=== PATIENT | male | born 1960 | race Two or more races ===

== ENCOUNTER → 2019-12-05 10:03 | Outpatient (BNVA) | payer OTHER, SELFPAY | PROVIDERS: PCP Internal Medicine; Referring Provider Internal Medicine; Visit Provider Nurse Practitioner Gerontology | DX: Z76.89 Persons encountering health services in other specified circumstances (principal) ==

== ENCOUNTER 2019-12-06 09:23 | Outpatient (REF) | payer OTHER, SELFPAY ==
[2019-12-06 10:05] LABS: Estimated Average Glucose 160 mg/dL; Hemoglobin A1C 217.7755 umol/L; Hemoglobin A1c % 7.2 %
[2019-12-06 10:23] LABS: Alanine Aminotransferase 32 U/L (0-40); Albumin Level 4.2 g/dL (3.5-5.0); Alkaline Phosphatase 43 U/L (39-117); Anion Gap 10 (12-20); Aspartate Amino Transferase 16 U/L (5-37); Bilirubin Total 0.7 mg/dL (0.0-1.0); Blood Urea Nitrogen 14 mg/dL (9-16); Carbon Dioxide 30 mmol/L (22-29); Chloride 105 mmol/L (96-108); Cholesterol 150 mg/dL; Estimated Glomerular Filt Rate > 60; Glucose Fasting 129 mg/dL (60-99); HDL Cholesterol 43 mg/dL; LDL Cholesterol Calculated 85 mg/dl; Potassium 3.8 mmol/l (3.3-5.1); Sodium 141 mmol/L (135-145); Total Protein 6.7 g/dL (6.5-8.0); Triglycerides 111 mg/dL
[2019-12-06 11:15] LABS: Creatinine Urine 138.73 mg/dL; Microalbum/Creatinine Ratio Ur 8.6 ug/mg cr
[2019-12-07 08:01] LABS: LDL Cholesterol Direct 98 mg/dL (<100)
== END 2019-12-06 09:24 | disposition home or self-care (01) ==
LOC: HO.LAB 09:23
PROVIDERS: PCP Internal Medicine; Visit Provider Nurse Practitioner Gerontology
DX: E11.65 Type 2 diabetes mellitus with hyperglycemia (principal)
CPT/HCPCS: 80053; 80061; 82043; 83036; 83721

== ENCOUNTER → 2020-03-11 08:11 | Outpatient (BNVA) | payer OTHER, SELFPAY | PROVIDERS: PCP Internal Medicine; Visit Provider Nurse Practitioner Gerontology | DX: Z76.89 Persons encountering health services in other specified circumstances (principal) ==

== ENCOUNTER 2020-06-22 09:49 | Outpatient (REF) | payer OTHER, SELFPAY ==
[2020-06-22 10:59] LABS: Estimated Average Glucose 108 mg/dL; Hemoglobin A1c % 5.4 %
== END 2020-06-22 09:50 | disposition home or self-care (01) ==
LOC: HO.LAB 09:49
PROVIDERS: PCP Internal Medicine; Visit Provider Nurse Practitioner Gerontology
DX: R07.9 Chest pain, unspecified (principal); E11.65 Type 2 diabetes mellitus with hyperglycemia; E78.5 Hyperlipidemia, unspecified; Z79.84 Long term (current) use of oral hypoglycemic drugs
CPT/HCPCS: 36415; 82947; 83036

== ENCOUNTER 2020-12-17 10:30 | Outpatient (REF) | payer OTHER, SELFPAY ==
[2020-12-17 10:51] LABS: MANUAL DIFF FLAG NO
[2020-12-17 11:24] LABS: Basophils Percent Auto 0.4 % (0-2); Eosinophils Absolute Auto 0.2 X10*3/uL (0.0-0.4); Eosinophils Percent Auto 2.9 % (0-4); Hematocrit 49.2 % (42-52); Hemoglobin 16.8 g/dl (14.0-18.0); Imm Gran Abs Auto 0.02 X10*3/uL (0.00-0.03); Imm Gran Pct Auto 0.4 % (0.0-0.4); Lymphocytes Absolute Auto 1.4 X10*3/uL (1.2-4.9); Lymphocytes Percent Auto 26.9 % (20-40); Mean Corpuscular HGB Conc 34.1 g/dl (31.0-36.0); Mean Corpuscular Hemoglobin 31.5 pg (27.0-33.0); Mean Corpuscular Volume 92.1 fL (80-98); Mean Platelet Volume 12.4 fL (9.4-12.4); Monocytes Absolute Auto 0.4 X10*3/uL (0.1-1.2); Monocytes Percent Auto 8.5 % (2-11); Neutrophils Absolute Auto 3.2 X10*3/uL (2.0-8.3); Neutrophils Percent Auto 60.9 % (45-73); Platelet Count 162 X10*3/uL (160-400); Red Blood Count 5.34 X10*6/uL (4.60-5.80); Red Cell Distribution Width 12.3 % (11.0-16.0); White Blood Count 5.2 X10*3/uL (4.8-10.8)
[2020-12-17 11:38] LABS: Alanine Aminotransferase 22 U/L (0-40); Albumin Level 4.5 g/dL (3.5-5.0); Alkaline Phosphatase 68 U/L (39-117); Anion Gap 11 (12-20); Aspartate Amino Transferase 16 U/L (5-37); Bilirubin Total 0.5 mg/dL (0.0-1.0); Blood Urea Nitrogen 14 mg/dL (9-16); Carbon Dioxide 31 mmol/L (22-29); Chloride 105 mmol/L (96-108); Estimated Glomerular Filt Rate > 60; Glucose Fasting 139 mg/dL (60-99); Potassium 4.8 mmol/L (3.3-5.1); Sodium 142 mmol/L (135-145); Total Protein 7.2 g/dL (6.5-8.0)
[2020-12-17 11:40] LABS: Estimated Average Glucose 148 mg/dL; Hemoglobin A1c % 6.8 %
[2020-12-17 12:02] LABS: Thyroid Stimulating Hormone 1.65 uIU/mL (0.32-4.0)
[2020-12-17 12:44] LABS: Microalbum/Creatinine Ratio Ur 15.8 ug/mg cr
== END 2020-12-17 10:31 | disposition home or self-care (01) ==
LOC: HO.LAB 10:30
PROVIDERS: PCP Internal Medicine; Visit Provider Internal Medicine
DX: Z00.00 Encounter for general adult medical examination without abnormal findings (principal); E11.9 Type 2 diabetes mellitus without complications; E03.9 Hypothyroidism, unspecified
CPT/HCPCS: 36415; 80053; 82043; 83036; 84443; 85025

== ENCOUNTER 2020-12-24 13:33 | Outpatient (REF) | payer OTHER, SELFPAY ==
--- NOTE | ~2020-12-24 | XR_ITS ---
EXAMINATION: BILATERAL SHOULDER X-RAY CLINICAL INFORMATION: Pain COMPARISON: Previous left shoulder x-ray most recent October 2014 right shoulder x-ray January 2008 TECHNIQUE: 4 views of each shoulder FINDINGS: Left: Bone alignment is normal. No fracture or dislocation is seen. The glenohumeral joint is normal. There is arthritis at the acromioclavicular joint. There is a small soft tissue calcification or ossification adjacent to the greater tuberosity. Right: Bone alignment is normal. No fracture or dislocation is seen. The glenohumeral joint is normal. There is arthritis at the acromioclavicular joint. There degenerative changes of the greater tuberosity and adjacent soft tissue calcification. 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 Degenerative changes of the greater tuberosity and bilateral adjacent soft tissue calcification, right greater than left.
--- NOTE | ~2020-12-24 | XR_ITS ---
EXAMINATION: BILATERAL SHOULDER X-RAY CLINICAL INFORMATION: Pain COMPARISON: Previous left shoulder x-ray most recent October 2014 right shoulder x-ray January 2008 TECHNIQUE: 4 views of each shoulder FINDINGS: Left: Bone alignment is normal. No fracture or dislocation is seen. The glenohumeral joint is normal. There is arthritis at the acromioclavicular joint. There is a small soft tissue calcification or ossification adjacent to the greater tuberosity. Right: Bone alignment is normal. No fracture or dislocation is seen. The glenohumeral joint is normal. There is arthritis at the acromioclavicular joint. There degenerative changes of the greater tuberosity and adjacent soft tissue calcification. XR/XR shoulder RT min 2V IMPRESSION: Bilateral arthritis at the acromioclavicular joint. Degenerative changes of the greater tuberosity and bilateral adjacent soft tissue calcification, right greater than left.
== END 2020-12-24 13:34 | disposition home or self-care (01) ==
LOC: HO.XRAY 13:33
PROVIDERS: PCP Internal Medicine; Visit Provider Internal Medicine
DX: M25.511 Pain in right shoulder (principal); M25.512 Pain in left shoulder
CPT/HCPCS: 73030

== ENCOUNTER 2021-11-26 16:00 | Outpatient (REF) | payer OTHER, SELFPAY ==
--- NOTE | ~2021-11-26 | XR_ITS ---
EXAMINATION: XR CERVICAL SPINE CLINICAL INFORMATION: Neck pain and arm pain. COMPARISON: None TECHNIQUE: 3 views of the cervical spine were obtained. FINDINGS: There is mild straightening of cervical lordosis. The vertebral heights and alignment is normal. There is loss of C3-C4, C5-C6 disc heights with mild ventral spondylosis. No lytic or sclerotic process seen.. There is moderate bilateral C2-C3, C3-C4 C4-C5 and C5-C6 facet joint arthropathy and hypertrophy. There is no visible acute fracture or subluxation. The prevertebral soft tissues are normal. XR/XR cervical spine 3V IMPRESSION: Straightening of cervical lordosis likely chronic. There is a degenerative disc changes C3-C4 and C5-C6 disc levels with ventral spondylosis. No compression fracture. There is bilateral facet joint arthropathy and hypertrophy as described above.
== END 2021-11-26 16:01 | disposition home or self-care (01) ==
LOC: HO.XRAY 16:00
PROVIDERS: Visit Provider Chiropractor
DX: M54.2 Cervicalgia (principal)
CPT/HCPCS: 72040

== ENCOUNTER 2022-03-03 16:48 | Outpatient (REF) | payer OTHER, SELFPAY ==
[2022-03-03 17:35] LABS: Influenza A PCR NEGATIVE (Negative); Influenza B PCR NEGATIVE (Negative); Resp Syncy Virus RNA Qual PCR NEGATIVE (Negative); SARS COV2 PCR INHOUSE NEGATIVE (Negative)
== END 2022-03-03 16:49 | disposition home or self-care (01) ==
LOC: HO.LNP 16:48
PROVIDERS: Visit Provider Nurse Practitioner Family
DX: Z20.822 Contact with and (suspected) exposure to COVID-19 (principal); R05.9 Cough, unspecified
CPT/HCPCS: 0241U

== ENCOUNTER 2022-04-28 11:29 | Outpatient (REF) | payer OTHER, SELFPAY ==
[2022-04-28 12:00] LABS: MANUAL DIFF FLAG NO
[2022-04-28 12:56] LABS: Basophils Percent Auto 0.4 % (0-2); Eosinophils Absolute Auto 0.1 X10*3/uL (0.0-0.4); Eosinophils Percent Auto 2.3 % (0-4); Hematocrit 50.5 % (42.0-52.0); Hemoglobin 17.1 g/dl (14.0-18.0); Imm Gran Abs Auto 0.01 X10*3/uL (0.00-0.03); Imm Gran Pct Auto 0.2 % (0.0-0.4); Lymphocytes Absolute Auto 1.7 X10*3/uL (1.2-4.9); Lymphocytes Percent Auto 35.7 % (20-40); Mean Corpuscular HGB Conc 33.9 g/dl (31.0-36.0); Mean Corpuscular Hemoglobin 30.9 pg (27.0-33.0); Mean Corpuscular Volume 91.3 fL (80.0-98.0); Mean Platelet Volume 12.3 fL (9.4-12.4); Monocytes Absolute Auto 0.4 X10*3/uL (0.1-1.2); Monocytes Percent Auto 9.1 % (2-11); Neutrophils Absolute Auto 2.5 x10*3/uL (2.0-8.3); Neutrophils Percent Auto 52.3 % (45-73); Platelet Count 155 X10*3/uL (160-400); Red Blood Count 5.53 X10*6/uL (4.60-5.80); Red Cell Distribution Width 12.2 % (11.0-16.0); White Blood Count 4.7 X10*3/uL (4.8-10.8)
[2022-04-28 13:26] LABS: Creatinine Urine 260.06 mg/dL; Microalbum/Creatinine Ratio Ur 23.4 ug/mg cr
[2022-04-28 13:37] LABS: Alanine Aminotransferase 25 U/L (0-40); Albumin Level 4.4 g/dL (3.5-5.0); Alkaline Phosphatase 75 U/L (39-117); Anion Gap 17 (12-20); Aspartate Amino Transferase 20 U/L (5-37); Bilirubin Total 0.9 mg/dL (0.0-1.0); Blood Urea Nitrogen 20 mg/dL (9-16); Calcium 9.2 mg/dL (8.4-10.2); Carbon Dioxide 25 mmol/L (22-29); Chloride 105 mmol/L (96-108); Cholesterol 143 mg/dL; Estimated Glomerular Filt Rate > 60; Glucose Fasting 176 mg/dL (60-99); HDL Cholesterol 40 mg/dL; LDL Cholesterol Calculated 87 mg/dl; Potassium 4.6 mmol/L (3.3-5.1); Sodium 142 mmol/L (135-145); Triglycerides 82 mg/dL
[2022-04-28 14:06] LABS: Estimated Average Glucose 237 mg/dL; Hemoglobin A1c % 9.9 %
== END 2022-04-28 11:30 | disposition home or self-care (01) ==
LOC: HO.LAB 11:29
PROVIDERS: PCP Internal Medicine; Visit Provider Internal Medicine
DX: E11.69 Type 2 diabetes mellitus with other specified complication (principal); E66.01 Morbid (severe) obesity due to excess calories; E78.5 Hyperlipidemia, unspecified; D64.9 Anemia, unspecified; N28.9 Disorder of kidney and ureter, unspecified
CPT/HCPCS: 36415; 80053; 80061; 82043; 83036; 85025

== ENCOUNTER 2022-08-24 10:02 | Outpatient (REF) | payer OTHER, SELFPAY ==
[2022-08-24 11:09] LABS: Cholesterol 150 mg/dL; Glucose Fasting 224 mg/dL (60-99); HDL Cholesterol 40 mg/dL; LDL Cholesterol Calculated 95 mg/dl; Triglycerides 75 mg/dL
[2022-08-24 11:23] LABS: Estimated Average Glucose 169 mg/dL; Hemoglobin A1c % 7.5 %
== END 2022-08-24 10:03 | disposition home or self-care (01) ==
LOC: HO.LAB 10:02
PROVIDERS: PCP Internal Medicine; Visit Provider Internal Medicine
DX: E11.9 Type 2 diabetes mellitus without complications (principal)
CPT/HCPCS: 36415; 80061; 82947; 83036

== ENCOUNTER 2022-10-12 11:50 | Outpatient (AMB) | payer OTHER, SELFPAY ==
[2022-10-12 11:51] VITALS: BP 158/76; PULSE 77; O2SAT 99; BMI 26.1
--- NOTE | 2022-10-12 11:51 | A.OFFPC_ITS ---
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 Allergies No Known Allergies Allergy (Verified 10/12/22 11:52) Tobacco use date assessed: 10/12/22 Dental Screening Dental Screen Date: 10/12/22 Did you have a dental visit in the last 12 months?: Yes Did you have a dental problem in the last 6 months where you did not have access to dental care?: No HPI Rash on back HPI Details pruritic rash on back PFSH Medical History Diabetes mellitus type 2, controlled, without complications Essential hypertension Hx of pancreatitis Hyperlipidemia LDL goal <100 Neck pain Type 2 diabetes mellitus with hyperglycemia Surgical History Hx of colonoscopy Family History Father Unknown family medical history Mother Diabetes Social History Household Members: None Housing: Apartment Patient Tobacco Use Status: Never used Tobacco e-Cigarette/Vaping Use: Never Used Second Hand Smoke Exposure: No service: No Current occupational status: employed Cognitive needs: No Hearing needs: No Vision needs: No Questionnaire Thrive Questionnaire Date Thrive assessed: 03/23/22 AUDIT C Alcohol Use Questionnaire (AUDIT-C) 1. How often do you have a drink containing alcohol?: Never 3. How often do you have six or more drinks on one occasion?: Never Total Score: 0 Score Reviewed/Action Taken: Yes CEDRIC-7 AMB Questionnaire CEDRIC-7 Date CEDRIC - 7 assessed: 03/23/22 Source: Developed by Drs. Jorge Ureña, Mable Conti, Alvaro Domínguez and colleagues, with an educational evens from [employer]. Review of Systems Const Denies chills, Denies headache(s) and Denies weight loss ENT Denies headache(s) Card Denies chest pain, Denies syncope, Denies irregular heart rhythm and Denies dyspnea Resp Denies chest congestion, Denies cough and Denies dyspnea GI Denies abdominal pain, Denies change in stool character, Denies nausea and Denies vomiting Musc Denies deformity and Denies joint swelling Neuro Denies syncope and Denies headache(s) Physical exam (Primary Care) Vital Signs: Last Vital Signs Pulse 77 10/12/22 11:51 BP 158/76 H 10/12/22 11:51 Pulse Ox 99 10/12/22 11:51 Oxygen Delivery Method Room Air 10/12/22 11:51 BMI result Body Mass Index 26.1 Tobacco/Smoking Status: Tobacco use Status Tobacco use date assessed 10/12/22 10/12/22 11:56 Patient Tobacco Use Status Never used Tobacco 10/12/22 11:56 e-Cigarette/Vaping Use Never Used 10/12/22 11:56 Thrive Assessment: Date of Thrive Assessment Date Thrive assessed 03/23/22 10/12/22 11:56 Const General: cooperative, comfortable and no acute distress Resp Effort & Inspection: normal respiratory effort Auscultation: clear to auscultation bilaterally Percussion: percussion normal Cardio Jugular venous distension: no JVD Rate: regular rate Rhythm: regular rhythm GI Inspection: Yes normal to inspection Skin Other: no rash noted Assessment and Plan Assessment & Plan (1) Itching: Code(s): L29.9 - Pruritus, unspecified Plan: rx Medications: Refilled clotrimazole-betamethasone 1-0.05 % 1 appl topical BID 45 grams 3RF 2 weeks Coding Level of Care Code Est Pt Level 3 (68992) Diagnoses Itching L29.9
== END 2022-10-12 12:03 | disposition home or self-care (01) ==
PROVIDERS: PCP Internal Medicine; Visit Provider Internal Medicine
DX: L29.9 Pruritus, unspecified (principal)
CPT/HCPCS: 99213

== ENCOUNTER 2022-11-24 10:32 | Outpatient (AMB) | payer OTHER, SELFPAY ==
[2022-11-24 10:33] VITALS: BP 140/64; PULSE 70; O2SAT 99; BMI 26.1
--- NOTE | 2022-11-24 10:33 | A.OFFPC_ITS ---
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 ([employer] Luis 14 Day [place]) As directed flash glucose sensor ([employer] Luis 14 Day Sensor kit) As directed ibuprofen 600 mg PO TID PRN lisinopril 40 mg PO BID meloxicam 15 mg PO DAILY metformin 1,000 mg PO BID sildenafil (Viagra) 50 mg PO DAILY PRN Tobacco use date assessed: 10/12/22 Dental Screening Dental Screen Date: 11/24/22 Did you have a dental visit in the last 12 months?: Yes Did you have a dental problem in the last 6 months where you did not have access to dental care?: No Was dental information given to patient?: Patient has dentist [facility] Medical History Diabetes mellitus type 2, controlled, without complications Neck pain Hx of pancreatitis Type 2 diabetes mellitus with hyperglycemia Essential hypertension Hyperlipidemia LDL goal <100 Surgical History Hx of colonoscopy Family History Father Unknown family medical history Mother Diabetes Social History Household Members: None Housing: Apartment Patient Tobacco Use Status: Never used Tobacco e-Cigarette/Vaping Use: Never Used Second Hand Smoke Exposure: No service: No Current occupational status: employed Cognitive needs: No Hearing needs: No Vision needs: No Questionnaire PHQ-9 Over the last 2 weeks, how often have you been bothered by any of the following problems? 1. Little interest or pleasure in doing things: not at all 2. Feeling down, depressed, or hopeless: not at all 3. Trouble falling or staying asleep, or sleeping too much: not at all 4. Feeling tired or having little energy: not at all 5. Poor appetite or overeating: not at all 6. Feeling bad about yourself - or that you are a failure or have let yourself or your family down: not at all 7. Trouble concentrating on things, such as reading the newspaper or watching television: not at all 8. Moving or speaking so slowly that other people could have noticed. Or the opposite - being so fidgety or restless that you have been moving around a lot more than usual: not at all 9. Thoughts that you would be better off or of hurting yourself in some way: not at all Total score: 0 Depression Screening Interpretation: Negative Source: Developed by Drs. Jorge Ureña, Mable Conti, Alvaro Domínguez and colleagues, with an educational evens from [employer]. Thrive Questionnaire Date Thrive assessed: 03/23/22 AUDIT C Alcohol Use Questionnaire (AUDIT-C) 1. How often do you have a drink containing alcohol?: Never 3. How often do you have six or more drinks on one occasion?: Never Total Score: 0 Score Reviewed/Action Taken: Yes CEDRIC-7 AMB Questionnaire CEDRIC-7 Date CEDRIC - 7 assessed: 03/23/22 Source: Developed by Drs. Jorge Ureña, Mable Conti, Alvaro Domínguez and colleagues, with an educational evens from [employer]. Review of Systems Const Denies chills, Denies headache(s) and Denies weight loss ENT Denies headache(s) Card Denies chest pain, Denies syncope, Denies irregular heart rhythm and Denies dyspnea Resp Denies chest congestion, Denies cough and Denies dyspnea GI Denies abdominal pain, Denies change in stool character, Denies nausea and Denies vomiting Musc Denies deformity and Denies joint swelling Neuro Denies syncope and Denies headache(s) Physical exam (Primary Care) Vital Signs: Last Vital Signs Pulse 70 11/24/22 10:33 BP 140/64 H 11/24/22 10:33 Pulse Ox 99 11/24/22 10:33 Oxygen Delivery Method Room Air 11/24/22 10:33 BMI result Body Mass Index 26.1 Tobacco/Smoking Status: Tobacco use Status Tobacco use date assessed 10/12/22 11/24/22 10:35 Patient Tobacco Use Status Never used Tobacco 11/24/22 10:35 e-Cigarette/Vaping Use Never Used 11/24/22 10:35 PHQ-9: PHQ-9 Score PHQ-9: Total score 0 11/24/22 10:57 Depression Screening Interpretation: Negative Thrive Assessment: Date of Thrive Assessment Date Thrive assessed 03/23/22 11/24/22 10:35 Const General: cooperative, comfortable, no acute distress and alert Neck Neck: Yes no lymphadenopathy Thyroid: Thyroid normal Resp Effort & Inspection: normal respiratory effort Auscultation: clear to auscultation bilaterally Percussion: percussion normal Cardio Jugular venous distension: no JVD Palpation: normal PMI Rate: regular rate Rhythm: regular rhythm Heart sounds: S1 normal heart sound present and S2 normal heart sound present GI Inspection: Yes normal to inspection Palpation (GI): No hepatosplenomegaly present Skin General skin exam: no rashes or lesions noted Extrem General: Yes no clubbing, cyanosis or edema Results AMB Hemoglobin A1c AMB Hemoglobin A1c 7.4 % Last Edit by SABRINA Puckett on 11/24/22 11:00 Assessment and Plan Assessment & Plan (1) Type 2 diabetes mellitus with hyperglycemia: Code(s): E11.65 - Type 2 diabetes mellitus with hyperglycemia Qualifiers: Diabetes mellitus care home insulin use: without care home use Qualified Code(s): E11.65 - Type 2 diabetes mellitus with hyperglycemia Plan: do labs (2) Essential hypertension: Code(s): I10 - Essential (primary) hypertension Plan: same rx (3) Hyperlipidemia LDL goal <100: Code(s): E78.5 - Hyperlipidemia, unspecified Plan: same rx Orders: Orders AMB Hemoglobin A1c Today E11.65 - Type 2 diabetes mellitus with hyperglycemia Lipid Panel Today E78.5 - Hyperlipidemia, unspecified Comprehensive [place]. 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
== END 2022-11-24 10:45 | disposition home or self-care (01) ==
PROVIDERS: PCP Internal Medicine; Visit Provider Internal Medicine
DX: E11.65 Type 2 diabetes mellitus with hyperglycemia (principal); I10 Essential (primary) hypertension; E78.5 Hyperlipidemia, unspecified
CPT/HCPCS: 83036; 99214

== ENCOUNTER 2023-01-23 10:13 | Outpatient (AMB) | payer OTHER, SELFPAY ==
[2023-01-23 12:12] VITALS: BP 150/78; PULSE 84; TEMP 36.7; O2SAT 97; BMI 27.1
--- NOTE | 2023-01-23 12:12 | MHC.OFFWIV ---
Intake Vital Signs 01/23/23 12:12 Height 5 ft 8 in Weight 178 lb BMI 27.1 BP 150/78 H Blood Pressure Location Rt brachial Position Sitting Pulse 84 Pulse Source Pulse Oximeter Temp 98.1 F Temp Source Temporal Artery Scan Pulse Oximetry (%) 97 Oxygen Delivery Method Room Air Intake Visit Reasons: EST/head congestion (lobby masked) Intake Note: pt is here today for head congestion coughing sneezing chills. started 2 days ago Patient Tobacco Use Status: Never used Tobacco Allergies No Known Allergies Allergy (Verified 01/23/23 12:13) Do you need a note to return to daycare/school/sports/work: Yes HPI HPI Comments History of Present Illness Details The patient presents to urgent care for evaluation of flu-like illness. He states he has been sick for 3 days with cough nasal congestion sore throat. Denies shortness of breath or chest pain. No history of asthma or smoking. [facility] Medical History Diabetes mellitus type 2, controlled, without complications Neck pain Hx of pancreatitis Type 2 diabetes mellitus with hyperglycemia Essential hypertension Hyperlipidemia LDL goal <100 Surgical History Hx of colonoscopy Family History Father Unknown family medical history Mother Diabetes Household Members: None Housing: Apartment Patient Tobacco Use Status: Never used Tobacco e-Cigarette/Vaping Use: Never Used Second Hand Smoke Exposure: No service: No Current occupational status: employed Cognitive needs: No Hearing needs: No Vision needs: No Review of Systems Const Reports body aches, Reports chills, Reports fatigue, Reports fever(s), Reports headache(s) and Reports malaise ENT Denies dizziness, Reports headache(s), Reports nasal congestion and Reports sore throat Card Denies rapid heart rate, Denies dyspnea and Denies dyspnea on exertion Resp Denies dyspnea and Denies dyspnea on exertion GI Denies dyspepsia and Denies heartburn Musc Denies arthralgias and Denies muscle cramps Neuro Denies dizziness, Reports headache(s), Denies focal weakness and Denies Other visual disturbances Endo Reports fatigue Physical Exam Vital Signs: Last Vital Signs Temp 98.1 F 01/23/23 12:12 Pulse 84 01/23/23 12:12 BP 150/78 H 01/23/23 12:12 Pulse Ox 97 01/23/23 12:12 Oxygen Delivery Method Room Air 01/23/23 12:12 BMI result Body Mass Index 27.1 Const General: healthy appearing and no acute distress HEENT Mouth: Normal oral and palatal mucosa present Resp Effort & Inspection: normal respiratory effort and able to speak in complete sentences Auscultation: clear to auscultation bilaterally Cardio Rate: regular rate Rhythm: regular rhythm Assessment & Plan Assessment & Plan (1) Upper respiratory tract infection: Code(s): J06.9 - Acute upper respiratory infection, unspecified Plan Patient's symptoms are consistent with acute viral syndrome. Etiology unclear at this time. COVID test was done. Patient is well appearing stable for outpatient management no need for antibiotics at this time. Patient was counseled on this. Recommended supportive care and OTC medications. Work note given. Orders: Orders SARS-CoV2/FLU/RSV Today R68.89 - Other general symptoms and signs Coding Level of Care Code Est Pt Level 3 (90689) Diagnoses Upper respiratory tract infection J06.9
== END 2023-01-23 13:04 | disposition home or self-care (01) ==
PROVIDERS: PCP Internal Medicine; Visit Provider Emergency Medicine
DX: J06.9 Acute upper respiratory infection, unspecified (principal)
CPT/HCPCS: 99213

== ENCOUNTER 2023-01-23 13:26 | Outpatient (REF) | payer OTHER, SELFPAY ==
[2023-01-23 17:08] LABS: Influenza A PCR NEGATIVE (Negative); Influenza B PCR NEGATIVE (Negative); Resp Syncy Virus RNA Qual PCR POSITIVE (Negative); SARS COV2 PCR INHOUSE NEGATIVE (Negative)
== END 2023-01-23 13:27 | disposition home or self-care (01) ==
LOC: HO.LAB 13:26
PROVIDERS: Visit Provider Emergency Medicine
DX: Z11.52 Encounter for screening for COVID-19 (principal); Z20.822 Contact with and (suspected) exposure to COVID-19; R68.89 Other general symptoms and signs
CPT/HCPCS: 0241U

== ENCOUNTER 2023-03-29 09:59 | Outpatient (AMB) | payer OTHER, SELFPAY ==
[2023-03-29 10:01] VITALS: BP 150/82; PULSE 65; O2SAT 100; BMI 27.2
--- NOTE | 2023-03-29 10:01 | A.OFFPC_ITS ---
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: Not Required per policy Accompanied by: Self / Same As Patient Allergies No Known Allergies Allergy (Verified 03/29/23 10:01) Medication List - Last Reconciled 03/29/23 by Carlos Urbano MD atorvastatin 20 mg PO DAILY clotrimazole-betamethasone 1-0.05 % 1 appl topical BID 2 weeks flash glucose scanning reader ([employer] Luis 14 Day [place]) As directed flash glucose sensor ([employer] Luis 14 Day Sensor kit) As directed glipizide ER 2.5 mg PO DAILY ibuprofen 600 mg PO TID PRN lisinopril 40 mg PO BID metformin 1,000 mg PO BID sildenafil (Viagra) 50 mg PO DAILY PRN Tobacco use date assessed: 03/29/23 Dental Screening Dental Screen Date: 03/29/23 Did you have a dental visit in the last 12 months?: Yes Did you have a dental problem in the last 6 months where you did not have access to dental care?: No Was dental information given to patient?: Patient has dentist HPI Annual Exam HPI Details DM HTN and hyperlip; A1C 6.7 PFSH Medical History Diabetes mellitus type 2, controlled, without complications Neck pain Hx of pancreatitis Type 2 diabetes mellitus with hyperglycemia Essential hypertension Hyperlipidemia LDL goal <100 Surgical History Hx of colonoscopy Family History Father Unknown family medical history Mother Diabetes Social History Household Members: None Housing: Apartment Patient Tobacco Use Status: Never used Tobacco e-Cigarette/Vaping Use: Never Used Second Hand Smoke Exposure: No service: No Current occupational status: employed Cognitive needs: No Hearing needs: No Vision needs: No Questionnaire PHQ-9 Over the last 2 weeks, how often have you been bothered by any of the following problems? 1. Little interest or pleasure in doing things: not at all 2. Feeling down, depressed, or hopeless: not at all 3. Trouble falling or staying asleep, or sleeping too much: not at all 4. Feeling tired or having little energy: not at all 5. Poor appetite or overeating: not at all 6. Feeling bad about yourself - or that you are a failure or have let yourself or your family down: not at all 7. Trouble concentrating on things, such as reading the newspaper or watching television: not at all 8. Moving or speaking so slowly that other people could have noticed. Or the opposite - being so fidgety or restless that you have been moving around a lot more than usual: not at all 9. Thoughts that you would be better off or of hurting yourself in some way: not at all Total score: 0 Depression Screening Interpretation: Negative Depression Screening Done: Yes 61111 - PHQ-9 Billing: Yes Source: Developed by Drs. Jorge Ureña, Mable Conti, Alvaro Domínguez and colleagues, with an educational evens from [employer]. Thrive Questionnaire Date Thrive assessed: 03/29/23 I am a: Patient What is your living situation today?: I have a steady place to live Within the past 12 months, did the food you bought not last and you didn't have the money to get more?: Never true Within the past 12 months, did you worry whether your food would run out before you got money to buy more?: Never true Do you have trouble paying for medicines?: No Do you have trouble getting transportation to medical appointments?: No Do you have trouble paying your heating and electricity bill?: No Do you have trouble taking care of your child, family member or friend?: No Do you have trouble with day-to-day activities such as bathing, preparing meals, shopping, managing finances, etc.?: No Are you currently unemployed and looking for a job?: No Are you interested in more education?: No Please select the resources that you would like help with: None THRIVE Score: 0 AUDIT C Alcohol Use Questionnaire (AUDIT-C) 1. How often do you have a drink containing alcohol?: Never 3. How often do you have six or more drinks on one occasion?: Never Total Score: 0 Score Reviewed/Action Taken: Yes CEDRIC-7 AMB Questionnaire CEDIRC-7 Date CEDRIC - 7 assessed: 03/29/23 Feeling nervous, anxious, or on edge: 0 = Not at all Not being able to stop or control worryin = Not at all Worrying too much about different things: 0 = Not at all Trouble relaxin = Not at all Being so restless that it is hard to sit still: 0 = Not at all Becoming easily annoyed or irritable: 0 = Not at all Feeling afraid as if something awful might happen: 0 = Not at all Total CEDRIC-7 score (0-4 normal; 5-9 mild; 10-14 moderate; 15-21 severe): 0 Source: Developed by Drs. Jorge Ureña, Mable Conti, Alvaro Domínguez and colleagues, with an educational evens from [employer]. CEDRIC-7 Assessment Billing CEDRIC-7 Assessment Tool: CEDRIC-7 Assessment 43606 Review of Systems Const Denies chills, Denies fatigue, Denies headache(s) and Denies weight loss Eyes Denies change in vision, Denies diplopia and Denies eye pain ENT Denies vertigo, Denies dizziness, Denies headache(s) and Denies nasal discharge Card Denies chest pain, Denies rapid heart rate and Denies dyspnea on exertion Resp Denies chest congestion, Denies cough, Denies pain with cough and Denies dyspnea on exertion GI Denies abdominal pain, Denies hematochezia and Denies change in bowel habits Musc Denies myalgias, Denies arthralgias and Denies joint swelling Skin/Breast Denies lesions and Denies unusual bruising Neuro Denies vertigo, Denies dizziness, Denies headache(s) and Denies focal weakness Endo Denies fatigue Physical exam (Primary Care) Vital Signs: Last Vital Signs Pulse 65 03/29/23 10:01 BP 150/82 H 03/29/23 10:01 Pulse Ox 100 03/29/23 10:01 Oxygen Delivery Method Room Air 03/29/23 10:01 BMI result Body Mass Index 27.2 Tobacco/Smoking Status: Tobacco use Status Tobacco use date assessed 03/29/23 03/29/23 10:02 Patient Tobacco Use Status Never used Tobacco 03/29/23 10:02 e-Cigarette/Vaping Use Never Used 03/29/23 10:02 PHQ-9: PHQ-9 Score PHQ-9: Total score 0 03/29/23 10:10 Depression Screening Interpretation: Negative Thrive Assessment: Date of Thrive Assessment Date Thrive assessed 03/29/23 03/29/23 10:02 Const General: cooperative, healthy appearing and no acute distress Orientation/consciousness: oriented to person, oriented to place and oriented to time HENMT Head: Yes normal to inspection, Yes normocephalic and Yes atraumatic Mouth: Normal oral and palatal mucosa present and tongue normal Throat: Yes posterior oropharynx normal and Yes uvula midline Eyes General: appearance normal, both eyes and all related structures Neck Neck: Yes normal visual inspection, Yes full ROM and Yes no lymphadenopathy Thyroid: Thyroid normal Carotids: normal carotid upstroke Chest Chest palpation & inspection: normal inspection of the chest Resp Effort & Inspection: normal respiratory effort and able to speak in complete sentences Auscultation: clear to auscultation bilaterally Cardio Jugular venous distension: no JVD Palpation: normal PMI Rate: regular rate Rhythm: regular rhythm Heart sounds: S1 normal heart sound present and S2 normal heart sound present GI Inspection: Yes normal to inspection Palpation (GI): Soft to palpation and No hepatosplenomegaly present Auscultation: normal bowel sounds General: Yes no CVA tenderness Back/Spine/Pelvis Back: no CVA tenderness Skin General skin exam: no rashes or lesions noted Neuro General: oriented to person, oriented to place and oriented to time Extrem General: Yes normal to inspection and Yes full ROM Results AMB Hemoglobin A1c AMB Hemoglobin A1c 6.8 % Last Edit by SABRINA Puckett on 03/29/23 10:13 Results Reviewed Results Reviewed: Laboratory Last Values Hgb A1c (Clinic) 6.8 % (4.0-6.0) H 03/29/23 10:02 Assessment and Plan Assessment & Plan (1) Type 2 diabetes mellitus with hyperglycemia: Code(s): E11.65 - Type 2 diabetes mellitus with hyperglycemia Qualifiers: Diabetes mellitus custodial insulin use: without custodial use Louis lified Code(s): E11.65 - Type 2 diabetes mellitus with hyperglycemia Plan: stable; same rx (2) Physical exam: Code(s): Z00.00 - Encounter for general adult medical examination without abnormal findings Plan: stable (3) Essential hypertension: Code(s): I10 - Essential (primary) hypertension Plan: stable; same rx (4) Hyperlipidemia LDL goal <100: Code(s): E78.5 - Hyperlipidemia, unspecified Plan: stable Orders: Orders AMB Hemoglobin A1c Today E11.65 - Type 2 diabetes mellitus with hyperglycemia Coding Level of Care Code Est Pt Prev Care 40-64y(76231) Diagnoses Type 2 diabetes mellitus with hyperglycemia, without long-term current use of insulin E11.65 Diabetes mellitus buttermaker insulin use: without buttermaker use Physical exam Z00.00 Essential hypertension I10 Hyperlipidemia LDL goal <100 E78.5 Additional Codes CEDRIC-7 Assessment Billing - CEDRIC-7 Assessment Tool: CEDRIC-7 Assessment 55341 ([id number])
== END 2023-03-29 10:22 | disposition home or self-care (01) ==
PROVIDERS: Visit Provider Internal Medicine
DX: E11.65 Type 2 diabetes mellitus with hyperglycemia (principal); Z00.00 Encounter for general adult medical examination without abnormal findings; I10 Essential (primary) hypertension; E78.5 Hyperlipidemia, unspecified
CPT/HCPCS: 83036; 99396

== ENCOUNTER 2023-05-11 10:06 | Outpatient (AMB) | payer OTHER, SELFPAY ==
[2023-05-11 10:07] VITALS: BP 128/64; PULSE 69; O2SAT 99; BMI 26.6
--- NOTE | 2023-05-11 10:07 | MHC.PC.OV ---
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) As directed clotrimazole-betamethasone 1-0.05 % 1 appl topical BID 2 weeks flash glucose scanning reader ([employer] Luis 14 Day [place]) As directed flash glucose sensor ([employer]Style Luis 14 Day Sensor kit) As directed glipizide ER 2.5 mg PO DAILY ibuprofen 600 mg PO TID PRN lisinopril 40 mg PO BID metformin 1,000 mg PO BID sildenafil (Viagra) 50 mg PO DAILY PRN Tobacco use date assessed: 03/29/23 Dental Screening Dental Screen Date: 05/11/23 Did you have a dental visit in the last 12 months?: Yes Did you have a dental problem in the last 6 months where you did not have access to dental care?: No Was dental information given to patient?: Patient has dentist HPI Throwing up/Diarrhea HPI Details abd pain nausea vimiting and diarrhea for a day; workmates with similar problem PFSH Medical History Diabetes mellitus type 2, controlled, without complications Neck pain Hx of pancreatitis Type 2 diabetes mellitus with hyperglycemia Essential hypertension Hyperlipidemia LDL goal <100 Surgical History Hx of colonoscopy Family History Father Unknown family medical history Mother Diabetes Social History Household Members: None Housing: Apartment Patient Tobacco Use Status: Never used Tobacco e-Cigarette/Vaping Use: Never Used Second Hand Smoke Exposure: No service: No Current occupational status: employed Cognitive needs: No Hearing needs: No Vision needs: No Questionnaire Thrive Questionnaire Date Thrive assessed: 03/29/23 CEDRIC-7 AMB Questionnaire CEDRIC-7 Date CEDRIC - 7 assessed: 03/29/23 Source: Developed by Drs. Jorge Ureña, Mable Conti, Alvaro Domínguez and colleagues, with an educational evens from [employer]. Review of Systems Const Denies chills, Denies headache(s) and Denies weight loss ENT Denies headache(s) Card Denies chest pain, Denies syncope, Denies irregular heart rhythm and Denies dyspnea Resp Denies chest congestion, Denies cough and Denies dyspnea GI Reports abdominal pain, Reports change in stool character, Reports nausea and Reports vomiting Musc Denies deformity and Denies joint swelling Neuro Denies syncope and Denies headache(s) Physical exam (Primary Care) Vital Signs: Last Vital Signs Pulse 69 05/11/23 10:07 BP 128/64 05/11/23 10:07 Pulse Ox 99 05/11/23 10:07 Oxygen Delivery Method Room Air 05/11/23 10:07 BMI result Body Mass Index 26.6 Tobacco/Smoking Status: Tobacco use Status Tobacco use date assessed 03/29/23 05/11/23 10:08 Patient Tobacco Use Status Never used Tobacco 05/11/23 10:08 e-Cigarette/Vaping Use Never Used 05/11/23 10:08 Thrive Assessment: Date of Thrive Assessment Date Thrive assessed 03/29/23 05/11/23 10:08 Const General: cooperative, comfortable, no acute distress and alert Neck Neck: Yes no lymphadenopathy Thyroid: Thyroid normal Resp Effort & Inspection: normal respiratory effort Auscultation: clear to auscultation bilaterally Percussion: percussion normal Cardio Jugular venous distension: no JVD Palpation: normal PMI Rate: regular rate Rhythm: regular rhythm Heart sounds: S1 normal heart sound present and S2 normal heart sound present GI Inspection: Yes normal to inspection Palpation (GI): No hepatosplenomegaly present Skin General skin exam: no rashes or lesions noted Extrem General: Yes no clubbing, cyanosis or edema Assessment and Plan Assessment & Plan (1) Gastroenteritis: Code(s): K52.9 - Noninfective gastroenteritis and colitis, unspecified Plan: rx sent Medications: New ondansetron HCl 4 mg PO Q6H PRN 30 tabs 2RF nausea and vomiting Coding Level of Care Code Est Pt Level 3 (85733) Diagnoses Gastroenteritis K52.9
== END 2023-05-11 10:31 | disposition home or self-care (01) ==
PROVIDERS: PCP Internal Medicine; Visit Provider Internal Medicine
DX: K52.9 Noninfective gastroenteritis and colitis, unspecified (principal)
CPT/HCPCS: 99213

== ENCOUNTER 2023-06-16 09:45 | Outpatient (AMB) | payer OTHER, SELFPAY ==
[2023-06-16 09:46] VITALS: BP 164/82; PULSE 65; O2SAT 98; BMI 27.5
--- NOTE | 2023-06-16 09:46 | A.OFFPC_ITS ---
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) As directed clotrimazole-betamethasone 1-0.05 % 1 appl topical BID 2 weeks flash glucose scanning reader ([employer] Luis 14 Day [place]) As directed flash glucose sensor ([employer] Luis 14 Day Sensor kit) As directed glipizide ER 2.5 mg PO DAILY ibuprofen 600 mg PO TID PRN lisinopril 40 mg PO BID metformin 1,000 mg PO BID ondansetron HCl 4 mg PO Q6H PRN sildenafil (Viagra) 50 mg PO DAILY PRN Tobacco use date assessed: 03/29/23 Dental Screening Dental Screen Date: 05/11/23 HPI follow up HPI Details HTN hyperlip and DM; sees endo; metformin decreased a bit due to low morning BS PFSH Medical History Diabetes mellitus type 2, controlled, without complications Neck pain Hx of pancreatitis Type 2 diabetes mellitus with hyperglycemia Essential hypertension Hyperlipidemia LDL goal <100 Surgical History Hx of colonoscopy Family History Father Unknown family medical history Mother Diabetes Social History Household Members: None Housing: Apartment Patient Tobacco Use Status: Never used Tobacco e-Cigarette/Vaping Use: Never Used Second Hand Smoke Exposure: No service: No Current occupational status: employed Cognitive needs: No Hearing needs: No Vision needs: No Questionnaire Thrive Questionnaire Date Thrive assessed: 03/29/23 CEDRIC-7 AMB Questionnaire CEDRIC-7 Date CEDRIC - 7 assessed: 03/29/23 Source: Developed by Drs. Jorge Ureña, Mable Conti, Alvaro Domínguez and colleagues, with an educational evens from [employer]. Review of Systems Const Denies chills, Denies headache(s) and Denies weight loss ENT Denies headache(s) Card Denies chest pain, Denies syncope, Denies irregular heart rhythm and Denies dyspnea Resp Denies chest congestion, Denies cough and Denies dyspnea GI Denies abdominal pain, Denies change in stool character, Denies nausea and Denies vomiting Musc Denies deformity and Denies joint swelling Neuro Denies syncope and Denies headache(s) Physical exam (Primary Care) Vital Signs: Last Vital Signs Pulse 65 06/16/23 09:46 BP 164/82 H 06/16/23 09:46 Pulse Ox 98 06/16/23 09:46 Oxygen Delivery Method Room Air 06/16/23 09:46 BMI result Body Mass Index 27.5 Tobacco/Smoking Status: Tobacco use Status Tobacco use date assessed 03/29/23 06/16/23 09:48 Patient Tobacco Use Status Never used Tobacco 06/16/23 09:48 e-Cigarette/Vaping Use Never Used 06/16/23 09:48 Thrive Assessment: Date of Thrive Assessment Date Thrive assessed 03/29/23 06/16/23 09:48 Const General: cooperative, comfortable, no acute distress and alert Neck Neck: Yes no lymphadenopathy Thyroid: Thyroid normal Resp Effort & Inspection: normal respiratory effort Auscultation: clear to auscultation bilaterally Percussion: percussion normal Cardio Jugular venous distension: no JVD Palpation: normal PMI Rate: regular rate Rhythm: regular rhythm Heart sounds: S1 normal heart sound present and S2 normal heart sound present GI Inspection: Yes normal to inspection Palpation (GI): No hepatosplenomegaly present Skin General skin exam: no rashes or lesions noted Extrem General: Yes no clubbing, cyanosis or edema Assessment and Plan Assessment & Plan (1) Essential hypertension: Code(s): I10 - Essential (primary) hypertension Plan: stable; same rx (2) Hyperlipidemia LDL goal <100: Code(s): E78.5 - Hyperlipidemia, unspecified Plan: stable; same rx (3) Type 2 diabetes mellitus with hyperglycemia: Code(s): E11.65 - Type 2 diabetes mellitus with hyperglycemia Qualifiers: Diabetes mellitus penitentiary insulin use: without termite helper use Qualified Code(s): E11.65 - Type 2 diabetes mellitus with hyperglycemia Plan: stable; same rx Orders: Orders Hemoglobin A1c Today R73.9 - Hyperglycemia, unspecified Lipid Panel Today Z13.220 - Encounter for screening for lipoid disorders Comprehensive [place]. Panel Fast Today Z13.9 - Encounter for screening, unspecified Coding Level of Care Code Est Pt Level 4 (30876) Diagnoses Essential hypertension I10 Hyperlipidemia LDL goal <100 E78.5 Type 2 diabetes mellitus with hyperglycemia, without long-term current use of insulin E11.65 Diabetes mellitus penitentiary insulin use: without penitentiary use
== END 2023-06-16 10:01 | disposition home or self-care (01) ==
PROVIDERS: PCP Internal Medicine; Visit Provider Internal Medicine
DX: I10 Essential (primary) hypertension (principal); E78.5 Hyperlipidemia, unspecified; E11.65 Type 2 diabetes mellitus with hyperglycemia
CPT/HCPCS: 99214

== ENCOUNTER 2023-09-18 11:45 | Outpatient (AMB) | payer OTHER, SELFPAY ==
[2023-09-18 11:48] VITALS: BP 168/80; PULSE 70; O2SAT 98; BMI 27.5
--- NOTE | 2023-09-18 11:48 | MHC.PC.OV ---
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) As directed clotrimazole-betamethasone 1-0.05 % 1 appl topical BID 2 weeks flash glucose scanning reader ([employer] Luis 14 Day [place]) As directed flash glucose sensor ([employer] Luis 14 Day Sensor kit) As directed glipizide ER 2.5 mg PO DAILY ibuprofen 600 mg PO TID PRN lisinopril 40 mg PO BID metformin 1,000 mg PO BID ondansetron HCl 4 mg PO Q6H PRN sildenafil (Viagra) 50 mg PO DAILY PRN Tobacco use date assessed: 03/29/23 Dental Screening Dental Screen Date: 05/11/23 HPI 3MOF\U HPI Details hyperlipidemia on rx; doing well and compliant PFSH Medical History Diabetes mellitus type 2, controlled, without complications Neck pain Hx of pancreatitis Type 2 diabetes mellitus with hyperglycemia Essential hypertension Hyperlipidemia LDL goal <100 Surgical History Hx of colonoscopy Family History Father Unknown family medical history Mother Diabetes Social History Household Members: None Housing: Apartment Patient Tobacco Use Status: Never used Tobacco e-Cigarette/Vaping Use: Never Used Second Hand Smoke Exposure: No service: No Current occupational status: employed Cognitive needs: No Hearing needs: No Vision needs: No Questionnaire Thrive Questionnaire Date Thrive assessed: 03/29/23 CEDRIC-7 AMB Questionnaire CEDRIC-7 Date CEDRIC - 7 assessed: 03/29/23 Source: Developed by Drs. Jorge Ureña, Mable Conti, Alvaro Domínguez and colleagues, with an educational evens from [employer]. Review of Systems Const Denies chills, Denies headache(s) and Denies weight loss ENT Denies headache(s) Card Denies chest pain, Denies syncope, Denies irregular heart rhythm and Denies dyspnea Resp Denies chest congestion, Denies cough and Denies dyspnea GI Denies abdominal pain, Denies change in stool character, Denies nausea and Denies vomiting Musc Denies deformity and Denies joint swelling Neuro Denies syncope and Denies headache(s) Physical exam (Primary Care) Vital Signs: Last Vital Signs Pulse 70 09/18/23 11:48 BP 168/80 H 09/18/23 11:48 Pulse Ox 98 09/18/23 11:48 Oxygen Delivery Method Room Air 09/18/23 11:48 BMI result Body Mass Index 27.5 Tobacco/Smoking Status: Tobacco use Status Tobacco use date assessed 03/29/23 09/18/23 11:48 Patient Tobacco Use Status Never used Tobacco 09/18/23 11:48 e-Cigarette/Vaping Use Never Used 09/18/23 11:48 Thrive Assessment: Date of Thrive Assessment Date Thrive assessed 03/29/23 09/18/23 11:48 Const General: cooperative, comfortable, no acute distress and alert Neck Neck: Yes no lymphadenopathy Thyroid: Thyroid normal Resp Effort & Inspection: normal respiratory effort Auscultation: clear to auscultation bilaterally Percussion: percussion normal Cardio Jugular venous distension: no JVD Palpation: normal PMI Rate: regular rate Rhythm: regular rhythm Heart sounds: S1 normal heart sound present and S2 normal heart sound present GI Inspection: Yes normal to inspection Palpation (GI): No hepatosplenomegaly present Skin General skin exam: no rashes or lesions noted Extrem General: Yes no clubbing, cyanosis or edema Results AMB Hemoglobin A1c AMB Hemoglobin A1c 6.5 % Last Edit by SABRINA Puckett on 09/18/23 12:00 Results Reviewed Results Reviewed: Laboratory Last Values Hgb A1c (Clinic) 6.5 % (4.0-6.0) H 09/18/23 11:49 Assessment and Plan Assessment & Plan (1) Hyperlipidemia LDL goal <100: Code(s): E78.5 - Hyperlipidemia, unspecified Plan: stable; same rx Orders: Orders Lipid Panel Today Z13.220 - Encounter for screening for lipoid disorders Hemoglobin A1c Today R73.9 - Hyperglycemia, unspecified AMB Hemoglobin A1c 09/18/23 E11.9 - Type 2 diabetes mellitus without complications Glucose Fasting Today R73.9 - Hyperglycemia, unspecified Medications: New sildenafil administer 30 minutes to 4 hours before activity 100 mg PO DAILY PRN 20 tabs 3RF sexual activity Coding Level of Care Code Est Pt Level 3 (11057) Diagnoses Hyperlipidemia LDL goal <100 E78.5
== END 2023-09-18 12:13 | disposition home or self-care (01) ==
PROVIDERS: PCP Internal Medicine; Visit Provider Internal Medicine
DX: E11.9 Type 2 diabetes mellitus without complications (principal)
CPT/HCPCS: 83036; 99213

== ENCOUNTER 2023-10-11 10:59 | Outpatient (AMB) | payer OTHER, SELFPAY ==
--- NOTE | 2023-10-11 10:59 | MHC.OFFWIV ---
Intake Vital Signs 10/11/23 11:01 Height 5 ft 8 in Weight 180 lb BMI 27.4 BP 130/80 Blood Pressure Location Rt brachial Position Sitting Pulse 74 Pulse Source Pulse Oximeter Pulse Oximetry (%) 97 Oxygen Delivery Method Room Air Intake Visit Reasons: EP- Abdominal pain Intake Note: Patient here for abdominal pain that has been present for about 2 days. Denies diarrhea, nausea or vomiting. Patient Tobacco Use Status: Never used Tobacco Allergies No Known Allergies Allergy (Verified 10/11/23 11:01) Do you need a note to return to daycare/school/sports/work: Yes HPI EP- Abdominal pain HPI Details This note is constructed using voice recognition software. While every effort has been made to ensure accuracy, industrial engineering errors may have been included. The patient is a 63 year old male who presents to the clinic today with abdomen pain for 4 days. He notes he had also been constipated, and had this has been a newer issue in the last several months. We tried Ex-Lax with some relief but not complete relief of the situation. The pain is lower abdominal. He denies fever, chills, nausea, vomiting, diarrhea, bleeding by rectum, anorexia. His last colonoscopy was at age 52, and was normal. [facility] Medical History Diabetes mellitus type 2, controlled, without complications Neck pain Hx of pancreatitis Type 2 diabetes mellitus with hyperglycemia Essential hypertension Hyperlipidemia LDL goal <100 Surgical History Hx of colonoscopy Family History Father Unknown family medical history Mother Diabetes Social History Household Members: None Housing: Apartment Patient Tobacco Use Status: Never used Tobacco e-Cigarette/Vaping Use: Never Used Second Hand Smoke Exposure: No service: No Current occupational status: employed Cognitive needs: No Hearing needs: No Vision needs: No Review of Systems Const All systems reviewed & are unremarkable except as noted in HPI and below Physical Exam Vital Signs: Last Vital Signs Pulse 74 10/11/23 11:01 BP 130/80 10/11/23 11:01 Pulse Ox 97 10/11/23 11:01 Oxygen Delivery Method Room Air 10/11/23 11:01 BMI result Body Mass Index 27.4 Const General: cooperative, healthy appearing, comfortable, no acute distress and alert Orientation/consciousness: patient oriented x3 Limitations: no limitations Resp Effort & Inspection: normal respiratory effort and able to speak in complete sentences Auscultation: clear to auscultation bilaterally Cardio Jugular venous distension: no JVD Palpation: normal PMI Rate: regular rate Heart sounds: S1 normal heart sound present, S2 normal heart sound present, no click, no gallops, no murmurs and no rubs GI Inspection: Yes normal to inspection Palpation (GI): Soft to palpation and nontender Percussion: Yes normal to percussion Auscultation: normal bowel sounds Skin General skin exam: no rashes or lesions noted, elasticity normal and turgor normal Neuro General: patient oriented x3 Psych Appearance: grossly normal Mental Status: mental status grossly normal Speech and movement: Normal speech and movement present Affect: normal affect Assessment & Plan Assessment & Plan (1) Constipation: Code(s): K59.00 - Constipation, unspecified Qualifiers: Constipation type: unspecified constipation type Qualified Code(s): K59.00 - Constipation, unspecified Plan: Advised to increase dietary or supplemental fiber versus short course of [id number]-psm-[id number] laxative. Patient may also try Colace for stool softening. Advised patient to contact primary care provider for ordering of routine colonoscopy as he is due. Advised urgent evaluation should he develop sudden acute pain or bleeding per rectum. Physical examination reassuring that he is not having any issues with diverticulitis, appendicitis, or obstruction given physical examination findings. Plan See above for full details and plan. Coding Level of Care Code Est Pt Level 3 (91845) Diagnoses Constipation, unspecified constipation type K59.00 Constipation type: unspecified constipation type
[2023-10-11 11:01] VITALS: BP 130/80; PULSE 74; O2SAT 97; BMI 27.4
== END 2023-10-11 11:32 | disposition home or self-care (01) ==
PROVIDERS: PCP Internal Medicine; Visit Provider Registered Nurse
DX: K59.00 Constipation, unspecified (principal)
CPT/HCPCS: 99213

== ENCOUNTER 2023-12-15 11:40 | Outpatient (AMB) | payer OTHER, SELFPAY ==
--- NOTE | 2023-12-15 11:48 | MHC.PC.OV ---
Vital Signs 12/15/23 11:49 Height 5 ft 8 in Weight 180 lb 8 oz BMI 27.4 BP 136/68 Blood Pressure Location Lt brachial Position Sitting Pulse 70 Pulse Source Pulse Oximeter Pulse Oximetry (%) 97 Oxygen Delivery Method Room Air Intake Visit Reasons: 3 Month F/U Intake Note: Patient is here to follow up on HTN, DM, HLD. Pt decline flu shot today. Demand Equipment Repairer Required: No Manufacturing Engineering Technician: Not Required per policy Accompanied by: Self / Same As Patient Allergies No Known Allergies Allergy (Verified 12/15/23 11:49) Medication List - Last Reconciled 12/18/23 by Carlos Urbano MD atorvastatin 20 mg PO DAILY blood-glucose meter,continuous (Dexcom G7 Technology Advisor) As directed clotrimazole-betamethasone 1-0.05 % 1 appl topical BID 2 weeks flash glucose scanning reader (ThinkatureStyle Luis 14 Day [place]) As directed flash glucose sensor (ThinkatureStyle Luis 14 Day Sensor kit) As directed glipizide ER 2.5 mg PO DAILY ibuprofen 600 mg PO TID PRN lisinopril 40 mg PO BID metformin 500 mg PO BID ondansetron HCl 4 mg PO Q6H PRN sildenafil 100 mg PO DAILY PRN sildenafil (Viagra) 50 mg PO DAILY PRN Tobacco use date assessed: 12/15/23 Dental Screening Dental Screen Date: 05/11/23 HPI 3 Month F/U HPI Details hyperlipidemia on rx; compliant with rx; doing well PFSH Medical History Diabetes mellitus type 2, controlled, without complications Neck pain Hx of pancreatitis Type 2 diabetes mellitus with hyperglycemia Essential hypertension Hyperlipidemia LDL goal <100 Surgical History Hx of colonoscopy Family History Father Unknown family medical history Mother Diabetes Social History Household Members: None Housing: Apartment Patient Tobacco Use Status: Never used Tobacco e-Cigarette/Vaping Use: Never Used Second Hand Smoke Exposure: No service: No Current occupational status: employed Cognitive needs: No Hearing needs: No Vision needs: No Questionnaire Thrive Questionnaire Date Thrive assessed: 03/29/23 CEDRIC-7 AMB Questionnaire CEDRIC-7 Date CEDRIC - 7 assessed: 03/29/23 Source: Developed by Drs. Jorge Ureña, Mable Conti, Alvaro Domínguez and colleagues, with an educational evens from [employer]. Review of Systems Const Denies chills, Denies headache(s) and Denies weight loss ENT Denies headache(s) Card Denies chest pain, Denies syncope, Denies irregular heart rhythm and Denies dyspnea Resp Denies chest congestion, Denies cough and Denies dyspnea GI Denies abdominal pain, Denies change in stool character, Denies nausea and Denies vomiting Musc Denies deformity and Denies joint swelling Neuro Denies syncope and Denies headache(s) Physical exam (Primary Care) Vital Signs: Last Vital Signs Pulse 70 12/15/23 11:49 BP 136/68 12/15/23 11:49 Pulse Ox 97 12/15/23 11:49 Oxygen Delivery Method Room Air 12/15/23 11:49 BMI result Body Mass Index 27.4 Tobacco/Smoking Status: Tobacco use Status Tobacco use date assessed 12/15/23 12/15/23 11:57 Patient Tobacco Use Status Never used Tobacco 12/15/23 11:57 e-Cigarette/Vaping Use Never Used 12/15/23 11:57 Thrive Assessment: Date of Thrive Assessment Date Thrive assessed 03/29/23 12/15/23 11:57 Const General: cooperative, comfortable, no acute distress and alert Neck Neck: Yes no lymphadenopathy Thyroid: Thyroid normal Resp Effort & Inspection: normal respiratory effort Auscultation: clear to auscultation bilaterally Percussion: percussion normal Cardio Jugular venous distension: no JVD Palpation: normal PMI Rate: regular rate Rhythm: regular rhythm Heart sounds: S1 normal heart sound present and S2 normal heart sound present GI Inspection: Yes normal to inspection Palpation (GI): No hepatosplenomegaly present Skin General skin exam: no rashes or lesions noted Extrem General: Yes no clubbing, cyanosis or edema Results AMB Hemoglobin A1c AMB Hemoglobin A1c 6.9 % Last Edit by SABRINA Wright on 12/15/23 12:00 Results Reviewed Results Reviewed: Laboratory Last Values Hgb A1c (Clinic) 6.9 % (4.0-6.0) H 10/18/24 11:48 Coding Level of Care Code Est Pt Level 3 (10396) Diagnoses Hyperlipidemia LDL goal <100 E78.5 Assessment & Plan Assessment & Plan (1) Hyperlipidemia LDL goal <100: Code(s): E78.5 - Hyperlipidemia, unspecified Category: Medical Plan: stable; same rx Orders: Orders AMB Hemoglobin A1c 12/15/23 E11.9 - Type 2 diabetes mellitus without complications XR shoulder RT min 2V 12/16/23 M25.519 - Pain in unspecified shoulder XR cervical spine 2V 12/16/23 M54.2 - Cervicalgia XR lumbar spine 2-3V 12/16/23 M54.9 - Dorsalgia, unspecified XR shoulder LT min 2V 12/16/23 M25.519 - Pain in unspecified shoulder
[2023-12-15 11:49] VITALS: BP 136/68; PULSE 70; O2SAT 97; BMI 27.4
== END 2023-12-15 12:06 | disposition home or self-care (01) ==
PROVIDERS: PCP Internal Medicine; Visit Provider Internal Medicine
DX: E78.5 Hyperlipidemia, unspecified (principal)

== ENCOUNTER → 2023-12-15 11:40 | Outpatient (BNVA) | payer OTHER, SELFPAY | PROVIDERS: PCP Internal Medicine; Visit Provider Internal Medicine | DX: E78.5 Hyperlipidemia, unspecified (principal); E11.9 Type 2 diabetes mellitus without complications | CPT/HCPCS: 83036 ==

== ENCOUNTER 2023-12-16 10:48 | Outpatient (REF) | payer OTHER, SELFPAY ==
--- NOTE | ~2023-12-16 | XR_ITS ---
EXAMINATION: XR SHOULDER, RIGHT CLINICAL INFORMATION: Pain COMPARISON: X-ray dated December 24, 2020. TECHNIQUE: AP external rotation, Grashey, scapular Y, and axillary views of the right shoulder. FINDINGS: Degenerative changes in the glenoid foci of the scapula. Degenerative changes in the acromioclavicular joint and the greater tuberosity of the humerus. No acute cortical disruption or malalignment. No lytic or blastic lesions. XR/XR shoulder RT min 2V IMPRESSION: Osteoarthrosis without acute fracture or dislocation. Electronically signed by: Conrad Brian MD 12/27/2023 10:31 AM EDT
== END 2023-12-16 10:49 | disposition home or self-care (01) ==
LOC: HO.XRAY 10:48
PROVIDERS: PCP Internal Medicine; Visit Provider Internal Medicine
DX: M25.511 Pain in right shoulder (principal); M54.2 Cervicalgia; M54.9 Dorsalgia, unspecified
CPT/HCPCS: 72040; 72100; 73030

== ENCOUNTER → 2023-12-16 10:52 | Outpatient (BNV) | payer OTHER, SELFPAY | PROVIDERS: PCP Internal Medicine; Visit Provider Radiology Diagnostic Radiology | DX: M25.511 Pain in right shoulder (principal) | CPT/HCPCS: 73030 ==

== ENCOUNTER 2024-04-04 07:13 | Outpatient (REF) | payer OTHER, SELFPAY ==
[2024-04-04 08:29] LABS: Alanine Aminotransferase 25 U/L (0-40); Albumin Level 4.2 g/dL (3.5-5.0); Alkaline Phosphatase 56 U/L (39-117); Anion Gap 11 (12-20); Aspartate Amino Transferase 21 U/L (5-37); Bilirubin Total 0.6 mg/dL (0.0-1.0); Blood Urea Nitrogen 15 mg/dL (9-16); Calcium 9.2 mg/dL (8.4-10.2); Carbon Dioxide 29 mmol/L (22-29); Chloride 105 mmol/L (96-108); Cholesterol 122 mg/dL (<200); Estimated Glomerular Filt Rate > 60; Glucose Fasting 98 mg/dL (60-99); HDL Cholesterol 43 mg/dL (>40); LDL Cholesterol Calculated 63 mg/dL (<100); Potassium 3.7 mmol/L (3.3-5.1); Sodium 141 mmol/L (135-145); Total Protein 7.2 g/dL (6.5-8.0); Triglycerides 80 mg/dL (<150)
[2024-04-04 11:19] LABS: Estimated Average Glucose 128 mg/dL; Hemoglobin A1C 191.3521 umol/L; Hemoglobin A1c % 6.1 % (<6.0); Total Hemoglobin (HGBA1C) 4387.0323 umol/L
== END 2024-04-04 07:14 | disposition home or self-care (01) ==
LOC: HO.LAB 07:13
PROVIDERS: PCP Internal Medicine; Visit Provider Internal Medicine
DX: Z13.9 Encounter for screening, unspecified (principal)
CPT/HCPCS: 36415; 80053; 80061; 83036

== ENCOUNTER → 2024-04-05 11:33 | Outpatient (AMB) | payer OTHER, SELFPAY | END | disposition home or self-care (01) | PROVIDERS: PCP Internal Medicine; Visit Provider Internal Medicine ==

== ENCOUNTER → 2024-04-05 11:33 | Outpatient (BNVA) | payer OTHER, SELFPAY | PROVIDERS: PCP Internal Medicine; Visit Provider Internal Medicine | DX: E11.65 Type 2 diabetes mellitus with hyperglycemia (principal) | CPT/HCPCS: 96127 ==

== ENCOUNTER 2024-05-10 10:46 | Outpatient (RCR) | payer OTHER, SELFPAY ==
--- NOTE | 2024-09-17 10:07 | MHC.PT.DC ---
[facility] [place] [facility] [place] [facility] [place] Office [address] Silas William [address] [facility] [phone] F: [phone] F: [phone] F: [phone] F: [phone] Physical Therapy Discharge Report Diagnosis: bilateral acromioclavicular joint arthritis Date of Surgery: Date of Evaluation: 05/10/24 Date of Discharge: Treatments to Date: 1 Cancellations to Date: No Shows to Date: Discharge Status: Patient Elected to Stop Discharge Summary: Patient is a 63 year old R handed male who presents with s/s consistent with acromioclavicular arthritis or bilateral shoulders, bilateral shoulder pain. 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 Patient past medical history includes DM. Current impairments include pain, posture, ROM, strength, activity tolerance and functional mobility. Functional limitations include decreased ability to reach, lift, carry, push, pull, sleep and dress. Patient is motivated with good rehab potential. Skilled PT will address impairments and functional limitations in order to achieve goals. Electronically signed by: Earnest Jama, PT Please sign and return to therapist. Thank you for your referral.
== END 2024-09-17 10:08 | disposition home or self-care (01) ==
LOC: HO.PTCHIC 10:46
PROVIDERS: PCP Internal Medicine; Visit Provider Physician Assistant
DX: M19.011 Primary osteoarthritis, right shoulder (principal); M19.012 Primary osteoarthritis, left shoulder
CPT/HCPCS: 97110; 97162

== ENCOUNTER 2024-06-06 12:35 | Outpatient (AMB) | payer OTHER, SELFPAY ==
--- NOTE | 2024-06-06 12:38 | AM.OFFWIN_ITS ---
Intake Vital Signs 06/06/24 12:40 Weight 182 lb BP 180/80 H Blood Pressure Location Lt brachial Position Sitting Pulse 75 Pulse Source Pulse Oximeter Temp 98.3 F Temp Source Oral Pulse Oximetry (%) 98 Oxygen Delivery Method Room Air Intake Visit Reasons: EP-gas/burning Intake Note: Patient here for burning sensation in stomach that started yesterday. Patient Tobacco Use Status: Never used Tobacco Allergies No Known Allergies Allergy (Verified 06/06/24 12:40) Do you need a note to return to daycare/school/sports/work: Yes HPI HPI Comments History of Present Illness Details 64 y/o Male patient who presents to the walk in clinic with c/o Stomach pain and Burning since Yesterday. Denies constipation, Diarrhea, Nausea or vomiting. Denies any changes to his Diet, but does endorse unhealthy diet. [facility] Medical History (Updated 06/06/24 @ 12:50 by Cortney Griffith NP) Epigastric abdominal pain Diabetes mellitus type 2, controlled, without complications Neck pain Hx of pancreatitis Type 2 diabetes mellitus with hyperglycemia Essential hypertension Hyperlipidemia LDL goal <100 Surgical History Hx of colonoscopy Family History Father Unknown family medical history Mother Diabetes Social History (Updated 03/29/24 @ 10:49 by SABRINA Black) Household Members: None Housing: Apartment Patient Tobacco Use Status: Never used Tobacco Tobacco use type: Cigarette e-Cigarette/Vaping Use: Never Used Second Hand Smoke Exposure: No service: No Current occupational status: employed 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, 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 Cognitive needs: No Hearing needs: No Vision needs: No Review of Systems Const All systems reviewed & are unremarkable except as noted in HPI and below Physical Exam Vital Signs: Last Vital Signs Temp 98.3 F 06/06/24 12:40 Pulse 75 06/06/24 12:40 BP 180/80 H 06/06/24 12:40 Pulse Ox 98 06/06/24 12:40 Oxygen Delivery Method Room Air 06/06/24 12:40 Const General: no acute distress Nutritional Appearance: well nourished Orientation/consciousness: patient oriented x3 GI Inspection: Yes Abdominal panniculus present Palpation (GI): Soft to palpation, not firm, Tenderness to palpation present (GI) in the epigastrum, no guarding, not rigid and No hepatosplenomegaly present Auscultation: normal bowel sounds Neuro General: patient oriented x3, gait normal and moves all extremities Psych Speech and movement: Normal speech and movement present Assessment & Plan Assessment & Plan (1) Epigastric abdominal pain: Code(s): R10.13 - Epigastric pain Plan: Advised BLAND diet Ordered Omeprazole BID Advised Lifestyle changes and healthy Diet. Follow up with PCP. Medications: New omeprazole 20 mg PO BID 14 days 28 caps 0RF R10.13 - Epigastric pain Coding Level of Care Code Est Pt Level 4 (90052) Diagnoses Epigastric abdominal pain R10.13 Time Spent (min) 20
[2024-06-06 12:40] VITALS: BP 180/80; PULSE 75; TEMP 36.8; O2SAT 98
--- OUTSIDE RECORDS SUMMARY | 2024-06-06 15:00 | XMS_ITS | Continuity of Care Document ---
Author Organization [facility] [address] [place] [address] Phone [phone] Problems Active Problems Provider Date Essential hypertension Laith Daly M.D. O nset: 08/24/2022 Hyperlipidemia Laith Daly M.D. Onset: 0 08/24/2022 Type 2 diabetes mellitus Laith Daly M.D. Onset: 08/24/2022 Social History Type Date Description Comments Sex Unknown Tobacco Use Start: Unknown Never Smoked Cigarettes Smoking Status Reviewed: 08/24/22 Never Smoked Cigaret laureen ETOH Use Denies alcohol use Allergies and adverse reactions Description No Known Drug Allergies Medications Active Medications SIG Qnty Indications Order ing Provider Date Glipizide ER2.5mg Tablets ER 24HR Take 1 Tablet By Mouth Every Day In The Morning 90tabs Laith Daly M.D. 02/24/2023 Dexcom G7 ReceiverDevice use for sugar reading dx e11.9 1units Laith Daly M.D. 11/23/2022 Dexcom G7 Sensor Change Every 10 Days Use To Check Sugar 3units E11.9 Laith Daly M.D. 11/23/2022 Onetouch VerioStrips use 1 strip to check glucose 3 times daily dx: e11.9 200units E11.9 Grover Fajardo M.D. 09/22/2022 [id number] Tablets Take 1 Tablet By Mouth Every Day 90tabs Laith Daly M.D. 08/24/2022 [id number] Tablets Take 1 Tablet By Mouth Twice A Day Carlos Urbano Metformin [id number] Tablets Take 1/2 Tablet By Mouth Twice A Day Carlos Urbano Freestyle Luis 2/Sensor/Flash Glucose Monitoring [id number] Misc Alecjosh Carlos 0 000 Atorvastatin Ebkpavk91lb Tablets 1 by mouth every day 90tabs Carlos Urbano Sildenafil Nhdqimj56lw Tablets take 1 tablet by mouth daily as needed as directed 5tabs Alecjosh Carlos Vital Signs Date Vital Result Comment 09/01/2023 12:56pm BP Systolic 160 mmHg BP Diastolic 90 mmHg Heart Rate 72 /min Height 68 inches 5'8 Weight 180.38 lb BMI (Body Mass Index) 27.4 kg/m2 Results Test Acquired Date Facility Test Result H/L Range N ote Hemoglobin A1c 09/01/2023 Inhouse Hemoglobin A1c 6.7% Glucose Fingerstick 09/01/2023 Inhouse Glucose Fingerstick 186 Hemoglobin A1c 05/26/2023 Inhouse Hemoglobin A1c 6.1% Glucose Fingerstick 05/26/2023 Inhouse Glucose Fingerstick 105 Hemoglobin A1c 02/24/2023 Inhouse Hemoglobin A1c 6.5% Glucose Fingerstick 02/24/2023 Inhouse Glucose Fingerstick 180 Hemoglobin A1c 11/23/2022 Inhouse Hemoglobin A1c 8.3% Glucose Fingerstick 11/23/2022 Inhouse Glucose Fingerstick 187 Hemoglobin A1c 08/24/2022 Inhouse Hemoglobin A1c 8.0% Glucose Fingerstick 08/24/2022 Inhouse Glucose Fingerstick 179 Procedures Date Code Description Status 05/23/2024 NSHOWOFF No Show Office Visit Complet ed 12/08/2023 NSHOWOFF No Show Office Visit Complet ed Medical Devices Description No Information Available Encounters Type Date Location Provider Dx Diagnosis Office Visit 09/01/2023 1:00p Main Office Laith Daly M.D. E11.9 Type 2 diabetes mellitus without complications Assessments Date Code Description Provider 09/01/2023 E11.9 Type 2 diabetes mellitus without complications Laith Daly M.D. Plan of Treatment Future Appointment(s):* 10/07/2024 9:15 am - Laith Daly M.D. at Main Office 05/26/2023 - Laith Daly M.D.* E11.9 Type 2 diabetes mellitus without complications Functional Status Description No Information Available Mental Status Description No Information Available Referrals Refer to Dr Reason for Referral Status Appt Logan e Laith Daly, M.D. Created [address] [place] [id number] [phone] Ken Michelle MD DIABETES EYE EXAM Closed [address] [place] [address] [phone] Laith Daly M.D. Closed [address] [place] [address] Drive [address] [place] [address] [phone]
== END 2024-06-06 13:39 | disposition home or self-care (01) ==
PROVIDERS: Visit Provider Nurse Practitioner Family
DX: R10.13 Epigastric pain (principal)

== ENCOUNTER → 2024-06-06 12:35 | Outpatient (BNVA) | payer OTHER, SELFPAY | PROVIDERS: Visit Provider Nurse Practitioner Family ==

== ENCOUNTER 2024-07-05 08:45 | Outpatient (AMB) | payer OTHER, SELFPAY ==
--- OUTSIDE RECORDS SUMMARY | 2024-07-05 08:57 | XMS_ITS | Continuity of Care Document ---
Author Organization [facility] [address] [place] [address] Phone [phone] Problems Active Problems Provider Date Essential hypertension [...] e11.9 200units E11.9 Grover Fajardo M.D. 09/22/2022 Xblqfqsxb76ic Tablets Take 1 Tablet By Mouth Every Day 90tabs Laith Daly M.D. 08/24/2022 Hkksqmbzpb18ic Tablets Take 1 Tablet By Mouth Twice A Day Carlos Urbano Metformin [id number] Tablets Take 1/2 Tablet By Mouth Twice A Day Carlos Urbano Freestyle Luis 2/Sensor/Flash Glucose Monitoring Kjeasy7Qlpxcf Misc Alecjosh Carlos 0 000 Atorvastatin Bxtbqlh00dt Tablets 1 by mouth every day 90tabs Carlos Urbano Sildenafil Wgzgqcc98us Tablets take 1 tablet by mouth daily [...] Logan e Laith Daly, M.D. Created [address] [place] [address] [phone] Ken Michelle MD DIABETES EYE EXAM Closed [address] [place] [address] [phone] Laith Daly M.D. Closed [address] [place] [address] Drive [address] [place] [address] [phone]
[2024-07-05 09:01] VITALS: BMI 27.7
--- NOTE | 2024-07-05 09:01 | MHC.OFFVIS ---
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 States pain is mainly on his lower back and started about 5 years ago.No injury he can recall. States pain is only across his lower back. States his pain doesn't radiate down his legs. Patient has tried taking ibuprofen and stretches with out improving. Hx of sciatic nerve where he was having radiating sharp pain down his left leg. He was seeing a chiropractor and attending P.T and helped but took a while to get better. No MRI done. Allergies No Known Allergies Allergy (Verified 07/05/24 09:15) Medication List - Last Reconciled 07/05/24 by Leatha Garrett MD atorvastatin 20 mg PO DAILY blood-glucose sensor (Dexcom G7 Sensor device) As directed blood-glucose,forestry fire aide,cont (Dexcom G7 Performance Improvement Analyst) As directed clotrimazole-betamethasone 1-0.05 % 1 appl topical BID 2 weeks glipizide ER 2.5 mg PO DAILY lisinopril 40 mg PO BID metformin 500 mg (1/2 x 1,000 mg) PO BID omeprazole 20 mg PO BID 14 days sildenafil 100 mg PO DAILY PRN HPI Comments Details: Currently axial back pain. Non radicular. No numbness. No weakness. But bothers him almost daily. Worse with sleeping position. Improved by walking around. 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 He did have sciatica 10 years ago, treated with chiropractor, has not returned since. [facility] Medical History (Updated 07/05/24 @ 09:29 by Leatha Garrett MD) Epigastric abdominal pain Diabetes mellitus type 2, controlled, without complications Neck pain Hx of pancreatitis Type 2 diabetes mellitus with hyperglycemia Essential hypertension Hyperlipidemia LDL goal <100 Surgical History Hx of colonoscopy Family History Father Unknown family medical history Mother Diabetes Social History Household Members: None Housing: Apartment Patient Tobacco Use Status: Never used Tobacco Tobacco use type: Cigarette e-Cigarette/Vaping Use: Never Used Second Hand Smoke Exposure: No service: No Current occupational status: employed 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 Patient was appropriately conversant and oriented. Good historian. MSK: Inspection reveals appropriate head and neck positioning. No specific abnormalities found on inspection of the spine and all extremities. No pain with palpation over the spinous processes, facets, SI, GT. He indicates though that pain use release and quadratus lumborum. Lumbar ROM was full. Bilateral hip, knee and ankle ROM WNL. No ligamentous laxity or crepitance. No increased effusion. Slump sit test negative. FABERE test negative. Strength is 5/5 in all muscle groups tested. No increased tone noted. Neurological: Mood appears normal, good affect, and appropriate for the circumstances. MMT 5/5 on both lower and upper extremities. Depressed reflexes on bilateral patella and ankle. Hdz?s negative bilaterally. Babinski was down going bilaterally. Clonus was negative. Gait is non-antalgic without loss of balance. Results Reviewed Results Reviewed: I independently reviewed the results of the following: Intact disc spaces seen on lumbar x-ray. Ordering Physician: Carlos Urbano MD Date of Service: 12/16/23 Procedure(s): XR lumbar spine 2-3V Accession Number(s): [id number] cc: Carlos Urbano MD~ EXAMINATION: XR LUMBAR SPINE 3 VIEWS CLINICAL INFORMATION: Dorsalgia, unspecified M54.9. COMPARISON: XR Lumbar spine 05/05/2006 (report only). TECHNIQUE: Three views of the lumbosacral spine. FINDINGS: The vertebral bodies and posterior elements appear unremarkable. The disc spaces appear preserved, and the vertebral alignment appears unremarkable. The paraspinal soft tissues appear normal. An approximately 2 cm eggshell calcification projects over the right upper quadrant on frontal view. It is not visualized on lateral views. Differential diagnosis includes, but is not limited to, gallstone, vascular calcification, calcified node, etc. XR/XR lumbar spine 2-3V IMPRESSION: Findings as above. Electronically signed by: Jame Morejon MD 02/20/2024 04:59 PM [facility] I reviewed records from the following: Orthopedics saw him for right shoulder pain Assessment & Plan Assessment & Plan (1) Chronic back pain: Code(s): M54.9 - Dorsalgia, unspecified; G89.29 - Other chronic pain Category: Medical Qualifiers: Back pain location: low back pain Back pain laterality: bilateral Sciatica presence: without sciatica Qualified Code(s): M54.50 - Low back pain, unspecified; G89.29 - Other chronic pain Plan Chronic axial back pain which I think stems from myofascial or muscular strain rather than lumbar spine. However on exam today, I could not get reflexes on patella or ankles. He does have history of diabetes and question neuropathy. We looked at lumbar x-ray images from last year, showed him intact disc spaces. We can repeat lumbar x-ray today. Discussed postural changes. He can choose between PT or joining a gym for more routine/frequent exercises. Patient will think about this. Assessment and plan discussed with patient, and patient was agreeable. All questions were answered thoroughly. Follow up 4 weeks. Leatha Garrett MD, ERLIN Board Certified, [place] Board [employer] and Rehabilitation (ABPMR) Board Certified, [place] Board [employer] Electrodiagnostic [employer] (ABEM) Orders: Orders XR lumbar spine 2-3V Today M54.9 - Dorsalgia, unspecified Coding Level of Care Code New Pt Level 4 (56297) Diagnoses Chronic bilateral low back pain without sciatica M54.50; G89.29 Back pain location: low back pain Back pain laterality: bilateral Sciatica presence: without sciatica
== END 2024-07-05 09:49 | disposition home or self-care (01) ==
LOC: HO.HOS 08:46
PROVIDERS: Visit Provider Physical Medicine & Rehabilitation
DX: M54.50 Low back pain, unspecified (principal); G89.29 Other chronic pain; E11.40 Type 2 diabetes mellitus with diabetic neuropathy, unspecified
CPT/HCPCS: 99204

== ENCOUNTER 2024-07-05 08:45 | Outpatient (REF) | payer OTHER, SELFPAY ==
--- NOTE | ~2024-07-05 | XR_ITS ---
CLINICAL HISTORY: M54.9 - Dorsalgia, unspecified 3 views lumbar spine Comparison: CR/SR - XR LUMBAR SPINE 2-3V - 12/16/23 11:18 EDT Findings: Normal vertebral body alignment. No acute fractures or dislocation. Moderate lower lumbar facet disease. No significant disc disease. IMPRESSION: Lower lumbar facet disease. No acute fracture. This document has been electronically signed by: Sai Clements MD on 07/06/2024 22:59:41
--- OUTSIDE RECORDS SUMMARY | 2024-07-05 09:43 | XMS_ITS | Continuity of Care Document ---
Author Organization [facility] [address] [place] [address] Phone [phone] Problems Active Problems Provider Date Essential hypertension [...] e11.9 200units E11.9 Grover Fajardo M.D. 09/22/2022 [id number] Tablets Take 1 Tablet By Mouth Every Day 90tabs Laith Daly M.D. 08/24/2022 [id number] Tablets Take 1 Tablet By Mouth Twice A Day Carlos Urbano Metformin [id number] Tablets Take 1/2 Tablet By Mouth Twice A Day Carlos Urbano Freestyle Luis 2/Sensor/Flash Glucose Monitoring [id number] Misc Alecjosh Carlos 0 000 Atorvastatin [id number] Tablets 1 by mouth every day 90tabs Carlos Urbano Sildenafil Orsziss25xe Tablets take 1 tablet by mouth daily [...] Logan e Laith Daly, M.D. Created [address] [place] [id number] [phone] Ken Michelle MD DIABETES EYE EXAM Closed [address] [place] [address] [phone] Laith Daly M.D. Closed [address] [place] [address] Drive [address] [place] [address] [phone]
== END 2024-07-05 08:46 | disposition home or self-care (01) ==
LOC: HO.HOSX 08:45
PROVIDERS: Visit Provider Physical Medicine & Rehabilitation
DX: M54.9 Dorsalgia, unspecified (principal)
CPT/HCPCS: 72100

== ENCOUNTER → 2024-07-05 09:30 | Outpatient (BNV) | payer OTHER, SELFPAY | PROVIDERS: Visit Provider Radiology Diagnostic Radiology | DX: M46.96 Unspecified inflammatory spondylopathy, lumbar region (principal) | CPT/HCPCS: 72100 ==

== ENCOUNTER 2024-08-09 10:39 | Outpatient (AMB) | payer OTHER, SELFPAY ==
[2024-08-09 10:54] VITALS: BP 158/86; PULSE 67; RESP 20; TEMP 37.2; O2SAT 96; BMI 27.2
--- NOTE | 2024-08-09 10:54 | MHC.PC.OV ---
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: No Accompanied by: Self / Same As Patient Allergies No Known Allergies Allergy (Verified 08/09/24 11:08) Medication List - Last Reconciled 08/09/24 by FRED Borges atorvastatin 20 mg PO DAILY blood-glucose sensor ([employer] G7 Sensor device) As directed blood-glucose,supervisor general,cont ([employer] G7 Avid Editor) As directed clotrimazole-betamethasone 1-0.05 % 1 appl topical BID 2 weeks empagliflozin (Jardiance) 10 mg PO DAILY glipizide ER 2.5 mg PO DAILY lisinopril 40 mg PO BID metformin 500 mg (1/2 x 1,000 mg) PO BID sildenafil 100 mg PO DAILY PRN Tobacco use date assessed: 08/09/24 Dental Screening Dental Screen Date: 08/09/24 Did you have a dental visit in the last 12 months?: No Did you have a dental problem in the last 6 months where you did not have access to dental care?: No Was dental information given to patient?: Patient has dentist HPI Transfer from [facility] 4 month f/u HPI Details Patient is a 64-year-old gentleman presenting to transition care from Dr. Urbano who retired and also his 4 month follow up for chronic conditions Reports that he drinks a lot of coffee and he realized that his stomach was burning, so he has been calming down with the coffee and his stomach has improved since-he also thinks that Timmy food may of played a role in his stomach discomfort for couple days as well Reports numbness and tingling in both feet at times-reports that he walks around in the house sometime barefoot but not often and is aware of checking his feet Blood pressure was elevated in office, reports having coffee about 1015 this morning, which is close to an hour prior His blood pressure has always been elevated on his chart review. Will add amlodipine 5 mg daily and have the patient to return in 4 weeks for blood pressure check by the nurse Patient also reports that he has chronic lower back pain that he managed with stretching correcting his posture Denies chest pain, SOB, heart palpitation, or dizziness No abdominal pain, or change in bowel habits Denies urinary symptoms PFSH Medical History Epigastric abdominal pain Diabetes mellitus type 2, controlled, without complications Neck pain Hx of pancreatitis Type 2 diabetes mellitus with hyperglycemia Essential hypertension Hyperlipidemia LDL goal <100 Surgical History Hx of colonoscopy Family History (Reviewed 08/09/24 @ 11: by FRED Borges) Father Unknown family medical history Mother Diabetes Social History Household Members: None Housing: Apartment Patient Tobacco Use Status: Never used Tobacco Tobacco use type: Cigarette e-Cigarette/Vaping Use: Never Used Second Hand Smoke Exposure: No service: No Current occupational status: employed 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 1. Little interest or pleasure in doing things: not at all 2. Feeling down, depressed, or hopeless: not at all 3. Trouble falling or staying asleep, or sleeping too much: not at all 4. Feeling tired or having little energy: several days 5. Poor appetite or overeating: not at all 6. Feeling bad about yourself - or that you are a failure or have let yourself or your family down: not at all 7. Trouble concentrating on things, such as reading the newspaper or watching television: not at all 8. Moving or speaking so slowly that other people could have noticed. Or the opposite - being so fidgety or restless that you have been moving around a lot more than usual: not at all 9. Thoughts that you would be better off or of hurting yourself in some way: not at all Total score: 1 Depression Screening Interpretation: Negative Depression Screening Done: Yes Source: Developed by Drs. Mable Arizmendi Kurt Kroenke and colleagues, with an educational evens from [employer]. Thrive Questionnaire Date Thrive assessed: 08/09/24 I am a: Patient What is your living situation today?: I have a steady place to live Within the past 12 months, did the food you bought not last and you didn't have the money to get more?: I choose not to answer this question Within the past 12 months, did you worry whether your food would run out before you got money to buy more?: Never true Do you have trouble paying for medicines?: No Do you have trouble getting transportation to medical appointments?: No Do you have trouble paying your heating and electricity bill?: No Do you have trouble taking care of your child, family member or friend?: No Do you have trouble with day-to-day activities such as bathing, preparing meals, shopping, managing finances, etc.?: No Are you currently unemployed and looking for a job?: No Are you interested in more education?: No Please select the resources that you would like help with: None Currently or been in a relationship where the following occur: No concerns reported THRIVE Score: 0 AUDIT C Alcohol Use Questionnaire (AUDIT-C) 1. How often do you have a drink containing alcohol?: Never Total Score: 0 Score Reviewed/Action Taken: No CEDRIC-7 AMB Questionnaire CEDRIC-7 Date CEDRIC - 7 assessed: 04/05/24 Source: Developed by Drs. Jorge Ureña, Alvaro Quesada and colleagues, with an educational evens from [employer]. Review of Systems Const Denies headache(s) Eyes Denies loss of vision ENT Denies vertigo, Denies dizziness, Denies headache(s) and Denies sore throat Card Denies chest pain, Denies leg edema and Denies lightheadedness Resp Denies cough, Denies hemoptysis and Denies wheezing GI Denies abdominal pain, Denies melena, Denies constipation, Denies diarrhea and Denies vomiting Denies dysuria, Denies urinary frequency and Denies urinary urgency Musc Reports back pain (Chronic), Denies arthralgias, Denies joint swelling, Reports numbness (Feet) and Reports tingling (Feet) Neuro Denies Abnormal speech present, Denies behavioral changes, Denies vertigo, Denies dizziness, Denies headache(s), Denies loss of vision, Denies memory loss, Reports numbness (Feet) and Reports tingling (Feet) Psych Denies anxiety, Denies behavioral changes, Denies depression, Denies memory loss and Denies panic attacks Wilver/Lymph Denies easy bleeding and Denies easy bruising Aller/Immun Denies wheezing Physical exam (Primary Care) Vital Signs: Last Vital Signs Temp 99.0 F 08/09/24 10:54 Pulse 67 08/09/24 10:54 Resp 20 08/09/24 10:54 BP 148/86 H 08/09/24 11:14 Pulse Ox 96 08/09/24 10:54 Oxygen Delivery Method Room Air 08/09/24 10:54 BMI result Body Mass Index 27.2 Tobacco/Smoking Status: Tobacco use Status Tobacco use date assessed 08/09/24 08/09/24 11:02 Patient Tobacco Use Status Never used Tobacco 08/09/24 11:02 Tobacco use type Cigarette 08/09/24 11:02 e-Cigarette/Vaping Use Never Used 08/09/24 11:02 PHQ-9: PHQ-9 Score PHQ-9: Total score 1 08/09/24 11:40 Depression Screening Interpretation: Negative Thrive Assessment: Date of Thrive Assessment Date Thrive assessed 08/09/24 08/09/24 11:02 Currently or been in a relationship where the following occur: No concerns reported Const General: healthy appearing, no acute distress, alert and awake Nutritional Appearance: well nourished Orientation/consciousness: oriented to person, oriented to place and oriented to time HENMT Ears: TM's normal bilaterally General nose exam: Normal nasal mucous membranes and turbinates present Eyes Conjunctivae: conjunctivae normal Sclerae: sclerae normal Pupils: Equal, round and reactive pupils present Neck Neck: Yes no lymphadenopathy and Yes no JVD Thyroid: Thyroid normal Carotids: no bruits Resp Effort & Inspection: normal respiratory effort and not tachypneic Auscultation: no crackles, no rales, no rhonchi and no wheezes Cardio Rate: regular rate Rhythm: regular rhythm Heart sounds: no murmurs and normal S1 and S2 GI Palpation (GI): Soft to palpation, nontender, no hepatomegaly and no splenomegaly Auscultation: normal bowel sounds General: Yes no CVA tenderness Back/Spine/Pelvis Back: no CVA tenderness Thoracic/Lumbar Spine: No lumbar spinal tenderness Skin General skin exam: no rashes or lesions noted and dry skin Neuro General: oriented to person, oriented to place and oriented to time Cranial nerves: Yes Equal, round and reactive pupils present Speech: No Abnormal speech present Gait exam (Neuro): Normal gait present Motor exam (neuro): no tremor noted Extrem Right upper extremity: full ROM Left upper extremity: full ROM Right lower extremity: full ROM; no edema Left lower extremity: full ROM; no edema Psych Mental Status: mental status grossly normal Speech and movement: Normal speech and movement present Affect: normal affect Attitude: cooperative Thought process: Normal thought process present Results AMB Hemoglobin A1c AMB Hemoglobin A1c 6.1 % Last Edit by Laura Toscano CMA on 08/09/24 11:23 Results Reviewed Results Reviewed: Laboratory Last Values Hgb A1c (Clinic) 6.1 % (4.0-6.0) H 08/09/24 11:17 Coding Level of Care Code Est Pt Level 4 (39996) Diagnoses Chronic bilateral low back pain without sciatica M54.50; G89.29 Back pain laterality: bilateral Back pain location: low back pain Sciatica presence: without sciatica Controlled type 2 diabetes mellitus without complication, without long-term current use of insulin E11.9 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 use: without group home use Essential hypertension I10 Hyperlipidemia LDL goal <100 E78.5 Diabetic polyneuropathy associated with type 2 diabetes mellitus E11.42 Diabetes mellitus complication detail: diabetic polyneuropathy Diabetes mellitus type: type 2 Time Spent (min) 39 Assessment & Plan Assessment & Plan (1) Chronic back pain: Code(s): M54.9 - Dorsalgia, unspecified; G89.29 - Other chronic pain Category: Medical Qualifiers: Back pain laterality: bilateral Back pain location: low back pain Sciatica presence: without sciatica Qualified Code(s): M54.50 - Low back pain, unspecified; G89.29 - Other chronic pain Plan: Managed with stretching and posture modification May use warm compress alternating with cold compress (2) Diabetes mellitus type 2, controlled, without complications: Code(s): E11.9 - Type 2 diabetes mellitus without complications Category: Medical Qualifiers: 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 use: without group home use Qualified Code(s): E11.9 - Type 2 diabetes mellitus without complications Plan: A1c 6.1%-goal less than 7% Reinforced low sugar/carbohydrate diet and activity as tolerated Continue Jardiance 10 mg daily, glipizide ER 2.5 mg daily, metformin 1000 mg b.i.d. (3) Essential hypertension: Code(s): I10 - Essential (primary) hypertension Category: Medical Plan: Blood pressure elevated in office, continue to be elevated upon rechecking Reports having 1 cup of coffee this morning, he has been cutting down from his regular large amount of caffeine intake Reinforced low-salt diet and continue low in coffee intake We will start amlodipine 5 mg daily, return in 4 weeks for blood pressure check Monitor blood pressure at home at least twice a day Continue lisinopril 40 mg b.i.d. (4) Hyperlipidemia LDL goal <100: Code(s): E78.5 - Hyperlipidemia, unspecified Category: Medical Plan: No recent labs to evaluate, but lipid panel that was done 4 months ago for within normal limits Continue atorvastatin 20 mg daily (5) Diabetic neuropathy: Code(s): E11.40 - Type 2 diabetes mellitus with diabetic neuropathy, unspecified Category: Medical Qualifiers: Diabetes mellitus complication detail: diabetic polyneuropathy Diabetes mellitus type: type 2 Qualified Code(s): E11.42 - Type 2 diabetes mellitus with diabetic polyneuropathy Plan: Reports that this is intermittent Continue to monitor Orders: Orders Lipid Panel 3 Months E11.9 - Type 2 diabetes mellitus without complications, E78.5 - Hyperlipidemia, unspecified, J06.9 - Acute upper respiratory infection, unspecified, K52.9 - Noninfective gastroenteritis and colitis, unspecified Vitamin D 25-OH Total 3 Months E11.9 - Type 2 diabetes mellitus without complications, E78.5 - Hyperlipidemia, unspecified, J06.9 - Acute upper respiratory infection, unspecified, K52.9 - Noninfective gastroenteritis and colitis, unspecified UA CC w/rflx Micro + Cult 3 Months E11.9 - Type 2 diabetes mellitus without complications, E78.5 - Hyperlipidemia, unspecified, J06.9 - Acute upper respiratory infection, unspecified, K52.9 - Noninfective gastroenteritis and colitis, unspecified AMB Hemoglobin A1c 08/09/24 E11.9 - Type 2 diabetes mellitus without complications Complete Blood Count Auto Diff 3 Months E11.9 - Type 2 diabetes mellitus without complications, E78.5 - Hyperlipidemia, unspecified, J06.9 - Acute upper respiratory infection, unspecified, K52.9 - Noninfective gastroenteritis and colitis, unspecified Comprehensive [place]. Panel Fast 3 Months E11.9 - Type 2 diabetes mellitus without complications, E78.5 - Hyperlipidemia, unspecified, J06.9 - Acute upper respiratory infection, unspecified, K52.9 - Noninfective gastroenteritis and colitis, unspecified TSH reflex Free T4 3 Months E11.9 - Type 2 diabetes mellitus without complications, E78.5 - Hyperlipidemia, unspecified, J06.9 - Acute upper respiratory infection, unspecified, K52.9 - Noninfective gastroenteritis and colitis, unspecified Hemoglobin A1c 3 Months E11.9 - Type 2 diabetes mellitus without complications, E78.5 - Hyperlipidemia, unspecified, J06.9 - Acute upper respiratory infection, unspecified, K52.9 - Noninfective gastroenteritis and colitis, unspecified Medications: New amlodipine 5 mg PO DAILY 30 tabs 2RF Patient Instructions: Patient to return in 3 months Complete preordered labs a week before appointment
[2024-08-09 11:14] VITALS: BP 148/86
--- OUTSIDE RECORDS SUMMARY | 2024-08-09 11:42 | XMS_ITS | Continuity of Care Document ---
Author Organization [facility] [address] [place] [address] Phone [phone] Problems Active Problems Provider Date Essential hypertension Laith Daly M.D. O nset: 08/24/2022 Hyperlipidemia Laith Daly M.D. Onset: 0 08/24/2022 Type 2 diabetes mellitus Laith Daly M.D. Onset: 08/24/2022 Social History Type Date Description Comments Sex Male Sex Unknown Tobacco Use Start: Unknown Never [...] e11.9 200units E11.9 Grover Fajardo M.D. 09/22/2022 [id number] Tablets Take 1 Tablet By Mouth Every Day 90tabs Laith Daly M.D. 08/24/2022 [id number] Tablets Take 1 Tablet By Mouth Twice A Day Carlos Urbano Metformin [id number] Tablets Take 1/2 Tablet By Mouth Twice A Day Carlos Urbano Freestyle Luis 2/Sensor/Flash Glucose Monitoring Rjkdmm2Jmcesr Misc Carlos Urbano /0 000 Atorvastatin Zpajpgx17xb Tablets 1 by mouth every day 90tabs Alecjosh Carlos Sildenafil Nxryynr89lk Tablets take 1 tablet by mouth daily as needed as directed 5tabs Carlos Urbano Vital Signs Date Vital Result Comment 09/01/2023 [...] Description No Information Available Referrals Refer to Reason for Referral Status Appt Logan e Laith Daly M.D. Created [address] [place] [address] [phone] Ken Michelle MD DIABETES EYE EXAM Closed [address] [facility] [address] [place] [address] [phone] Laith Daly M.D. Closed [address] [place] [address] Drive [address] [place] [address] [phone]
== END 2024-08-09 11:34 | disposition home or self-care (01) ==
LOC: HO.HMCH 10:39
DX: M54.50 Low back pain, unspecified (principal); G89.29 Other chronic pain; I10 Essential (primary) hypertension; E78.5 Hyperlipidemia, unspecified; E11.42 Type 2 diabetes mellitus with diabetic polyneuropathy

== ENCOUNTER → 2024-08-09 10:39 | Outpatient (BNVA) | payer OTHER, SELFPAY | DX: E11.42 Type 2 diabetes mellitus with diabetic polyneuropathy (principal); R20.0 Anesthesia of skin; M54.50 Low back pain, unspecified; G89.29 Other chronic pain; E78.5 Hyperlipidemia, unspecified | CPT/HCPCS: 83036; 96127 ==

== ENCOUNTER → 2024-09-06 11:03 | Outpatient (BNVA) | payer OTHER, SELFPAY | DX: I10 Essential (primary) hypertension (principal) | CPT/HCPCS: 99211 ==

== ENCOUNTER 2024-09-15 15:23 | Emergency (ER) | payer OTHER, SELFPAY ==
[2024-09-15 15:36] VITALS: BP 162/75; PULSE 70; RESP 16; TEMP 36.2; O2SAT 94; BMI 33.4
--- NOTE | 2024-09-15 15:37 | ED_ITS ---
HPI - General Adult General Chief complaint: General Medical Stated complaint: high blood pressure + light headed Time Seen by Provider: 09/15/24 16:38 Source: patient Mode of arrival: ambulatory Limitations: no limitations History of Present Illness ED Provider: Maria Isabel Young PA-C HPI narrative: Patient is a 64 year old assigned male at with a history of HTN on amlodipine 5mg BID, DM, chronic back pain, and diabetic neuropathy presenting to the emergency department today with continued elevated blood pressure. Patient states that his doctor recently switched him to Amlodipine and then upped his dose but his pressure has still been high. Patient states that he feels fine but he is checking his blood pressure at home and is nervous that it is high. Patient states that he is keeping his numbers written down to talk to his PCP. Patient denies any dizziness, lightheadedness, abdominal pain, nausea, vomiting, fever, chills, blurry vision, double vision, loss of vision, chest pain, difficulty breathing, shortness of breath, back pain, night sweats, pain with urination, increased urinary frequency, increased urinary urgency, blood in his urine or stool, syncope or a near syncopal episode, recent trauma or falls, bowel incontinence, bladder incontinence, or any other complaints at this time. Relieving factors: none Exacerbating factors: none Associated symptoms: denies other symptoms Related Data Home Medications ?Medication ?Instructions ?Recorded ?Confirmed glipizide 2.5 mg tablet, extended 2.5 mg PO DAILY 03/0108/09/24 release 24 hr empagliflozin 10 mg tablet 10 mg PO DAILY 08/09/24 (Jardiance) Previous Rx's ?Medication ?Instructions ?Recorded blood-glucose,drug coordinator,cont #1 ea 04/10/23 (Dexcom G7 Stove Polisher) atorvastatin 20 mg tablet 20 mg PO DAILY #90 tabs 06/28 10/20 sildenafil 100 mg tablet 100 mg PO DAILY PRN sexual 0 09/19/23 activity #20 tabs clotrimazole-betamethasone 1 1 appl topical BID 2 week s #45 10/18/23 %-0.05 % topical cream grams metformin 1,000 mg tablet 500 mg (1/2 x 1,000 mg) PO B ID 04/22/24 #180 tabs lisinopril 40 mg tablet 40 mg PO BID #180 tabs 05/23 blood-glucose sensor (Dexcom G7 #1 ea 08/03/24 Sensor device) amlodipine 10 mg tablet 10 mg PO DAILY #30 tabs 08/27 08/21 Allergies Allergy/AdvReac Type Severity Reaction Status Date / Time No Known Allergies Allergy Verified 09/15/24 15:37 Review of Systems 2 Constitutional: Constitutional: Reports no additional constitutional complaints, Denies chills, Denies fever(s) and Denies night sweats Eyes: Eyes: Reports no additional eye complaints, Denies blurry vision, Denies change in vision, Denies diplopia, Denies eye discharge, Denies loss of vision and Denies eye pain ENT: Denies dizziness Cardiovascular: Cardiovascular: Reports no additional cardiovascular complaints, Denies chest pain, Denies lightheadedness, Denies Loss of Consciousness and Denies dyspnea Respiratory: Respiratory: Reports no additional respiratory complaints and Denies dyspnea Gastrointestinal: Gastrointestinal: Reports no additional gastrointestinal complaints, Denies abdominal pain, Denies melena, Denies hematochezia, Denies change in bowel habits and Denies change in stool character Genitourinary: Genitourinary: Reports no additional male genitourinary complaints, Denies hematuria, Denies oliguria, Denies difficulty urinating, Denies dysuria, Denies urinary frequency, Denies urinary hesitancy, Denies urinary incontinence and Denies urinary urgency Musculoskeletal: Musculoskeletal: Reports no additional musculoskeletal complaints, Denies numbness and Denies tingling Neurologic: Denies dizziness, Denies loss of vision, Denies numbness and Denies tingling Psychiatric: Psychiatric: Reports no additional psychiatric complaints Endocrine: Endocrine: Reports no additional endocrine complaints Hematologic/Lymphatic: Hematologic/Lymphatic: Reports no additional hematologic/lymphatic complaints Allergic/Immunologic: Allergic/Immunologic: Reports no additional allergic/immunologic complaints PMFSH Past Medical History Attestation statement: The following information was validated with the patient. Source: old records reviewed and nursing notes reviewed Medical History Epigastric abdominal pain Diabetes mellitus type 2, controlled, without complications Neck pain Hx of pancreatitis Type 2 diabetes mellitus with hyperglycemia Essential hypertension Hyperlipidemia LDL goal <100 Surgical History Hx of colonoscopy Family History Family History Father Unknown family medical history Mother Diabetes Social History Social History Household Members: None Housing: Apartment Patient Tobacco Use Status: Never used Tobacco Tobacco use type: Cigarette e-Cigarette/Vaping Use: Never Used Second Hand Smoke Exposure: No Advance Directives: No Advance Directives Information Provided: No service: No Current occupational status: employed 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, 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 Cognitive needs: No Hearing needs: No Vision needs: No Physical Exam ED Vital Signs: Vital Signs - 24 hr 09/15/24 15:36 09/15/24 16:52 Temperature 97.2 F 97.2 F Pulse Rate 70 70 Respiratory Rate 16 16 Blood Pressure 162/75 H 162/75 H Pulse Oximetry 94 94 Oxygen Delivery Method Room Air Room Air BMI result Body Mass Index 33.4 Const General: cooperative, no acute distress, alert and awake Nutritional Appearance: well nourished Orientation/consciousness: patient oriented x3 HENMT Head: Yes normal to inspection and Yes atraumatic Ears: hearing grossly normal bilaterally and external ears normal General nose exam: Normal external nose present, no nasal discharge noted and no epistaxis Face and sinus: Yes normal facial exam, No abrasion and No laceration Mouth: Normal oral and palatal mucosa present, no drooling and no muffled voice Eyes General: appearance normal, both eyes and all related structures Periorbital: periorbital findings normal Eyelids: Yes eyelids normal Conjunctivae: conjunctivae normal Pupils: Equal, round and reactive pupils present EOM: EOMs intact bilaterally Neck Neck: Yes normal visual inspection, Yes full ROM and Yes no lymphadenopathy Resp Effort & Inspection: normal respiratory effort and able to speak in complete sentences Neuro General: patient oriented x3, moves all extremities and CN's II-XI intact bilaterally Cranial nerves: Yes Equal, round and reactive pupils present Cognition (Neuro): normal cognition Extrem General: Yes normal to inspection, Yes full ROM and Yes capillary refill normal Psych Appearance: grossly normal Mental Status: mental status grossly normal Affect: normal affect Attitude: cooperative Thought process: Normal thought process present Thought content: Normal thought content present Insight: Good insight present (Psych) Course Course Course Narrative: Dhara Rockwell INSURANCE VERIFICATION REP 09/15 1537 This is a rapid medical exam. deferred additional HPI, ROS, PE to primary provider. 64 yo male with history of HTN, HLD, DM here with complaints of feeling lightheaded, concern that blood pressure is elevated. His PCP recently started norvasc and has been adjusting the dose. Will obtain labs, EKG Mild hypertension in triage. Medical Decision Making Medical Decision Making [facility] Narrative: Patient is a 64 year old assigned male at with a history of HTN on amlodipine 5mg BID, DM, chronic back pain, and diabetic neuropathy presenting to the emergency department today with continued elevated blood pressure. Patient's physical exam showed hypertension but otherwise unremarkable. Patient's blood work was unremarkable. Patient's EKG was unremarkable. While it was documented that he was lightheaded in the triage note - he denied this to me. I explained my physical exam findings as well as all test results to the patient. I answered all questions asked by the patient. I stressed the importance of the patient taking his medication as directed (either prescribed or as the over the counter packaging recommends). I stressed the importance of the patient following up with his primary care provider. I stressed the importance of the patient returning to the emergency department immediately if his symptoms were to worsen or if he were to develop any dizziness, shortness of breath, difficulty breathing, chest pain, blurry vision, loss of vision, nausea, vomiting, abdominal pain, fever, chills, back pain, or any other complaints. Patient verbalized agreement and understanding with this treatment plan and discharge. Differential Diagnosis Differential Diagnoses: The differential diagnosis associated with the presentation includes Elevated blood pressure Anxiety related to diagnoses Admission/Observation Consideration of admission/observation: Escalation of care including admission/observation considered Patient would have been admitted to the hospital had his work up had any findings where hospital admission was appropriate and his clinical presentation warranted hospital admission. Lab Data [facility] Lab Attestation statement: I reviewed the patient's lab results. My interpretation of these results are in the MDM Rationale portion of this note. 09/15/24 15:54 09/15/24 15:54 Labs: Lab Results 09/15/24 Range/Units 15:54 WBC 6.1 (4.8-10.8) X10*3/uL RBC 5.25 (4.60-5.80) X10*6/uL Hgb 16.7 (14.0-18.0) g/dl Hct 48.3 (42.0-52.0) % MCV 92.0 (80.0-98.0) fL MCH 31.8 (27.0-33.0) pg MCHC 34.6 (31.0-36.0) g/dl RDW 12.6 (11.0-16.0) % Plt Count 156 L (160-400) X10*3/uL MPV 11.2 (9.4-12.4) fL Immature Gran % (Auto) 0.3 (0.0-0.4) % Neut % (Auto) 57.4 (45-73) % Lymph % (Auto) 31.2 (20-40) % Crawford % (Auto) 8.0 (2-11) % Eos % (Auto) 2.8 (0-4) % Baso % (Auto) 0.3 (0-2) % Lymph # (Auto) 1.9 (1.2-4.9) X10*3/uL Crawford # (Auto) 0.5 (0.1-1.2) X10*3/uL Eos # (Auto) 0.2 (0.0-0.4) X10*3/uL Baso # (Auto) 0.0 (0.0-0.2) X10*3/uL Abs Immat Gran (auto) 0.02 (0.00-0.03) X10*3/uL Absolute Neuts (auto) 3.5 (2.0-8.3) x10*3/uL Absolute Nucleated RBC 0.000 (0.0-0.012) X10*3/uL Nucleated RBC % (auto) 0.0 (0.0-0.2) /100WBC Sodium 143 (135-145) mmol/L Potassium 3.9 (3.3-5.1) mmol/L Chloride 107 (96-108) mmol/L Carbon Dioxide 23 (22-29) mmol/L Anion Gap 17 (12-20) BUN 18 H (9-16) mg/dL Creatinine 1.02 (0.5-1.4) mg/dL Estim Creat Clear Calc 85.9 Estimated GFR > 60 Random Glucose 148 H (60-115) mg/dL Calcium 9.5 (8.4-10.2) mg/dL Troponin I High Sens 9.8 (<3.5-35.0) ng/L Independent Interpretation I performed an independent interpretation of an: EKG Interpretation: I independently interpreted this EKG and am in agreement with the below findings: Vent. Rate: 69 BPM Atrial Rate: 69 BPM P-R Int: 154 ms QRS Dur: 86 ms QT Int: 374 ms P-R-T Axes: 6 -11 11 degrees QTcB Int: 400 ms Normal sinus rhythm Minimal voltage criteria for LVH, may be normal variant (R in aVL) When compared with ECG of 02-Oct-2011 19:04, No significant change was found DD/ 1546 Chronic Conditions Patient?s care impacted by: Hypertension Discharge Plan Discharge Clinical Impression: Elevated blood pressure reading Patient Disposition: Home, Self-Care Instructions: Hypertension (ED) Additional Instructions: Continue taking your blood pressure medication as directed and keeping the blood pressure diary you have already started. Follow up with your primary care provider. Stop drinking caffeinated beverages, including coffee. Return to the emergency department immediately if your symptoms worsen or if you develop any numbness, tingling, dizziness, shortness of breath, difficulty breathing, chest pain, blurry vision, loss of vision, nausea, vomiting, abdominal pain, fever, chills, back pain, or any other complaints. Please see the information below about our Patient Portal. If you are not yet enrolled in the [facility] Patient Portal, you will receive an enrollment email invitation following your visit to any [facility] care setting. You may also self-enroll in the Patient Portal by visiting our website: [email or web address] The following information is required to access the Patient Portal: - Your [facility] Medical Record Number - Your personal home email address (must match what is in your electronic medical record, Registration staff can assist with this) - Name - Date of Capabilities of the Patient Portal: - Message some providers - View upcoming appointments - Access your health summary, medical history, and visit history - View current conditions and allergies - View procedure and lab results - View your medications, including guidelines, side effects, and precautions - Complete pre-appointment questionnaires requested by your provider - Ready summary reports of your office visits and procedures To access the Patient Portal Mobile [employer], follow these directions: - Search Ads Click in the [employer] Store or Google Play Store - Download the Cody - Search for [facility] - Enter your login/password Prescriptions: No Action (DME) Dexcom G7 Stove Polisher Misc See Rx Instructions .Route Qty: 1 3RF Rx Instructions: As directed atorvastatin 20 mg tablet 20 mg PO DAILY Qty: 90 8RF clotrimazole-betamethasone 1-0.05 % cream 1 appl topical BID 14 Days Qty: 45 3RF metformin 1,000 mg tablet 500 mg PO BID Qty: 180 5RF lisinopril 40 mg tablet 40 mg PO BID Qty: 180 3RF (DME) Dexcom G7 Sensor Device See Rx Instructions .Route Qty: 1 3RF Rx Instructions: As directed amlodipine 10 mg tablet 10 mg PO DAILY Qty: 30 3RF glipizide 2.5 mg tablet extended release 24hr 2.5 mg PO DAILY sildenafil 100 mg tablet 100 mg PO DAILY PRN (Reason: sexual activity) Qty: 20 3RF Rx Instructions: administer 30 minutes to 4 hours before activity Jardiance 10 mg tablet 10 mg PO DAILY Referrals: Juan Diego Giang FNP-C [Primary Care Provider, Internal Medicine] Interventions: ED Discharge Assessment Last Done: 09/15/24 16:52 Discharge Date/Time: 09/15/24 17:04 Print Language: Kyrgyz
--- NOTE | 2024-09-15 15:39 | ECG_ITS ---
Test Reason : dizziness Blood Pressure : */* mmHG Vent. Rate : 69 BPM Atrial Rate : 69 BPM P-R Int : 154 ms QRS Dur : 86 ms QT Int : 374 ms P-R-T Axes : 6 -11 11 degrees QTcB Int : 400 ms Normal sinus rhythm Minimal voltage criteria for LVH, may be normal variant ( R in aVL ) Borderline ECG When compared with ECG of 02-Oct-2011 19:04, No significant change was found Referred By: Dhara Rockwell Electronically Signed By: Jeremy Burnette
[2024-09-15 15:58] LABS: MANUAL DIFF FLAG NO
[2024-09-15 15:59] LABS: Hematocrit 48.3 % (42.0-52.0); Hemoglobin 16.7 g/dl (14.0-18.0); Imm Gran Abs Auto 0.02 X10*3/uL (0.00-0.03); Imm Gran Pct Auto 0.3 % (0.0-0.4); Lymphocytes Absolute Auto 1.9 X10*3/uL (1.2-4.9); Mean Corpuscular HGB Conc 34.6 g/dl (31.0-36.0); Mean Corpuscular Hemoglobin 31.8 pg (27.0-33.0); Mean Corpuscular Volume 92.0 fL (80.0-98.0); NRBC Abs Auto 0.000 X10*3/uL (0.0-0.012); NRBC Pct Auto 0.0 /100WBC (0.0-0.2); Platelet Count 156 X10*3/uL (160-400); Red Blood Count 5.25 X10*6/uL (4.60-5.80); White Blood Count 6.1 X10*3/uL (4.8-10.8)
[2024-09-15 16:12] LABS: Anion Gap 17 (12-20); Blood Urea Nitrogen 18 mg/dL (9-16); Calcium 9.5 mg/dL (8.4-10.2); Carbon Dioxide 23 mmol/L (22-29); Chloride 107 mmol/L (96-108); Creatinine Clr Calc Pharmacy 85.9; Estimated Glomerular Filt Rate > 60; Potassium 3.9 mmol/L (3.3-5.1); Sodium 143 mmol/L (135-145)
[2024-09-15 16:21] LABS: Troponin-I High Sensitivity 9.8 ng/L (<3.5-35.0)
[2024-09-15 16:52] VITALS: BP 162/75; PULSE 70; RESP 16; TEMP 36.2; O2SAT 94
== END 2024-09-15 17:04 | disposition home or self-care (01) ==
PROVIDERS: Nurse Practitioner Family; Emergency Provider Emergency Medicine
DX: R42 Dizziness and giddiness (principal); M54.50 Low back pain, unspecified; R94.31 Abnormal electrocardiogram [ECG] [EKG]; I10 Essential (primary) hypertension; Z79.899 Other long term (current) drug therapy
CPT/HCPCS: 36415; 80048; 84484; 85025; 93005; 99283

== ENCOUNTER → 2024-09-15 15:39 | Outpatient (BNV) | payer OTHER, SELFPAY | PROVIDERS: Emergency Provider Emergency Medicine; Visit Provider Internal Medicine Cardiovascular Disease | DX: R42 Dizziness and giddiness (principal) | CPT/HCPCS: 93010 ==

== ENCOUNTER 2024-09-27 11:02 | Outpatient (AMB) | payer OTHER, SELFPAY ==
--- NOTE | 2024-09-27 11:07 | A.OFFVIS_ITS ---
Vital Signs 09/27/24 11:11 Height 5 ft 8 in Weight 180 lb BMI 27.4 Intake Visit Reasons: OV- Back pain Intake Note: Jefry is a 64 year old male who presents today for a follow up of his Back pain. At last visit 07/05/24 we discussed the possibility of starting physical therapy or to join a gym. At today's visit he states that due to missing his physical therapy appointments they dropped him. He added that he did not join a gym. Patient states that the lower back pain is more on the right side, not the left side. No numbness or tingling to report at this time. Allergies No Known Allergies Allergy (Verified 09/27/24 11:10) HPI Comments Details: Currently axial back pain. Non radicular. No numbness. No weakness. But bothers him almost daily. Worse with sleeping position. Improved by walking around. 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 He did have sciatica 10 years ago, treated with chiropractor, has not returned since. Tried PT for a few sessions but was not able to complete course. Today pain is more right side, depends on position/activity, can't tell me exactly what triggers him. 3-4 times a week. Repeat lumbar xray reported facet joint pain. [facility] Medical History Epigastric abdominal pain Diabetes mellitus type 2, controlled, without complications Neck pain Hx of pancreatitis Type 2 diabetes mellitus with hyperglycemia Essential hypertension Hyperlipidemia LDL goal <100 Surgical History Hx of colonoscopy Family History Father Unknown family medical history Mother Diabetes Social History Household Members: None Housing: Apartment Patient Tobacco Use Status: Never used Tobacco Tobacco use type: Cigarette e-Cigarette/Vaping Use: Never Used Second Hand Smoke Exposure: No service: No Current occupational status: employed 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 Patient was appropriately conversant and oriented. Good historian. MSK: Pain indicated by patient is more on quadratus lumborum. Denied tenderness over lumbar facets. Neurological: Mood appears normal, good affect, and appropriate for the circumstances. MMT 5/5 on both lower and upper extremities. Gait is nonantalgic. Results Reviewed Results Reviewed: Ordering Physician: Leatha Estrada Date of Service: 07/05/24 Procedure(s): XR lumbar spine 2-3V Accession Number(s): [id number] cc: Leatha Estrada; Juan Diego Giang~ CLINICAL HISTORY: M54.9 - Dorsalgia, unspecified 3 views lumbar spine Comparison: CR/SR - XR LUMBAR SPINE 2-3V - 12/16/23 11:18 EDT Findings: Normal vertebral body alignment. No acute fractures or dislocation. Moderate lower lumbar facet disease. No significant disc disease. IMPRESSION: Lower lumbar facet disease. No acute fracture. This document has been electronically signed by: Sai Clements MD on 07/06/2024 22:59:41 Ordering Physician: Carlos Urbano MD Date of Service: 12/16/23 Procedure(s): XR lumbar spine 2-3V Accession Number(s): [id number] cc: Carlos Urbano MD~ EXAMINATION: XR LUMBAR SPINE 3 VIEWS CLINICAL INFORMATION: Dorsalgia, unspecified M54.9. COMPARISON: XR Lumbar spine 05/05/2006 (report only). TECHNIQUE: Three views of the lumbosacral spine. FINDINGS: The vertebral bodies and posterior elements appear unremarkable. The disc spaces appear preserved, and the vertebral alignment appears unremarkable. The paraspinal soft tissues appear normal. An approximately 2 cm eggshell calcification projects over the right upper quadrant on frontal view. It is not visualized on lateral views. Differential diagnosis includes, but is not limited to, gallstone, vascular calcification, calcified node, etc. XR/XR lumbar spine 2-3V IMPRESSION: Findings as above. Electronically signed by: Jame Morejon MD 02/20/2024 04:59 PM [facility] I reviewed records from the following: Orthopedics saw him for right shoulder pain Assessment & Plan Assessment & Plan (1) Quadratus lumborum syndrome: Code(s): M54.59 - Other low back pain Category: Medical (2) Pain of lumbar facet joint: Code(s): M54.59 - Other low back pain Category: Medical (3) Chronic back pain: Code(s): M54.9 - Dorsalgia, unspecified; G89.29 - Other chronic pain Category: Medical Qualifiers: Back pain location: low back pain Back pain laterality: bilateral Sciatica presence: without sciatica Qualified Code(s): M54.50 - Low back pain, unspecified; G89.29 - Other chronic pain Plan Chronic axial back pain which I still think stems from myofascial or muscular strain rather than lumbar spine. Repeat x-ray did show lumbar facet changes. We agreed to giving physical therapy a chance. In [place] [facility], they were addressing shoulder pain anyway, not lumbar pain. We agreed to referring him out to [facility]. Assessment and plan discussed with patient, and patient was agreeable. All questions were answered thoroughly. Follow up 3 months. Leatha Garrett MD, ERLIN Board Certified, [place] [employer] of Physical Medicine and Rehabilitation (ABPMR) Board Certified, [place] Board of Electrodiagnostic Medicine (ABEM) Orders: Orders PT Evaluation and Treatment Today M54.59 - Other low back pain Coding Level of Care Code Est Pt Level 3 (04694) Diagnoses Quadratus lumborum syndrome M54.59 Pain of lumbar facet joint M54.59 Chronic bilateral low back pain without sciatica M54.50; G89.29 Back pain location: low back pain Back pain laterality: bilateral Sciatica presence: without sciatica
--- OUTSIDE RECORDS SUMMARY | 2024-09-27 11:08 | XMS_ITS | Continuity of Care Document ---
Author Organization [facility] [address] [place] [address] Phone [phone] Problems Active Problems Provider Date Essential hypertension Laith Daly M.D. O nset: 08/24/2022 Hyperlipidemia Laith Daly M.D. Onset: 0 08/24/2022 Type 2 diabetes mellitus Laith Daly M.D. Onset: 08/24/2022 Social History Type Date Description Comments Sex Male Sex Unknown Tobacco Use Start: Unknown Never Smoked Cigarettes ETOH Use Denies alcohol use Allergies and [...] e11.9 200units E11.9 Grover Fajardo M.D. 09/22/2022 [id number] Tablets Take 1 Tablet By Mouth Every Day 90tabs Laith Daly M.D. 08/24/2022 [id number] Tablets Take 1 Tablet By Mouth Twice A Day Carlos Urbano Metformin [id number] Tablets Take 1/2 Tablet By Mouth Twice A Day Carlos Urbano Freestyle Luis 2/Sensor/Flash Glucose Monitoring [id number] Misc Carlos Urbano 000 Atorvastatin [id number] Tablets 1 by mouth every day 90tabs Carlos Urbano Sildenafil [id number] Tablets take 1 tablet by mouth daily [...] to Dr Reason for Referral Status Appt Laith Pascal M.D. Created [address] [place] [address] Drive [address] [place] [address] [phone] Laith Daly M.D. Created [address] [place] [address] Drive [address] [place] [id number] [phone] Ken Michelle MD DIABETES EYE EXAM Closed [address] [facility] [address] [place] [address] [phone] Laith Daly M.D. Closed [address] [place] [address] Drive [address] [place] [address] [phone]
[2024-09-27 11:11] VITALS: BMI 27.4
== END 2024-09-27 11:44 | disposition home or self-care (01) ==
LOC: HO.HOS 11:02
PROVIDERS: Visit Provider Physical Medicine & Rehabilitation
DX: M54.59 Other low back pain (principal); M54.50 Low back pain, unspecified; G89.29 Other chronic pain
CPT/HCPCS: 99213

== ENCOUNTER 2024-10-29 13:27 | Outpatient (AMB) | payer OTHER, SELFPAY ==
[2024-10-29 13:53] VITALS: BP 140/72; PULSE 71; TEMP 36.8; O2SAT 98; BMI 26.8
--- NOTE | 2024-10-29 13:53 | AM.OFFWIN_ITS ---
Intake Vital Signs 10/29/24 13:53 Height 5 ft 8 in Weight 176 lb BMI 26.8 BP 140/72 H Blood Pressure Location Lt brachial Position Sitting Pulse 71 Pulse Source Pulse Oximeter Temp 98.3 F Temp Source Oral Pulse Oximetry (%) 98 Oxygen Delivery Method Room Air Intake Visit Reasons: EP-cough, body ache, fever, vomiting Intake Note: pt presents with chest congestion, productive cough, fever,vomiting x3 days Patient Tobacco Use Status: Never used Tobacco Allergies No Known Allergies Allergy (Verified 10/29/24 13:56) Do you need a note to return to daycare/school/sports/work: Yes HPI HPI Comments History of Present Illness Details History - The patient is a 64-year-old male pres enting with a cough and sore throat. - Symptoms began two days ago, including a runny nose, cough, sore throat, and body aches. - The patient recently traveled to [facility] and experienced ear discomfort, particularly during the flight. - No nausea, vomiting, chest pain, or sh ortness of breath reported. - The patient is currently taking Aleve for body aches, which provides some relief. - No history of asthma or smoking. - He denies diarrhea, has been able to e at and drink. Physical Exam General: Cooperative, healthy appearing, comfortable and no acute distress Orientation/consciousness: Patient oriented x3 Limitations: No limitations Head: Normal to inspection Ears: Hearing grossly normal bilaterally, external ears normal, slight redness inside but no pain reported Nose: Normal external nose present, normal nares present, runny nose noted Face and sinus: Sinuses nontender to palpation. Mouth: Normal oral and palatal mucosa present and moist mucous membranes noted. Throat: Tonsils normal. Uvula is midline. Posterior oropharynx with erythema and no exudates. Sore throat reported Eyes: Appearance normal, both eyes and all related structures Neck: Normal visual inspection, full ROM. No lymphadenopathy noted. Respiratory: Clear to auscultation bilaterally. Normal respiratory effort, able to speak in complete sentences. No respiratory distress, not tachypneic, no tripod positioning and no use of accessory muscles. Cardiovascular: Regular rate and rhythm. Normal S1 and S2 Skin: No rashes or lesions noted Patient was informed and verbally consented to the use of an ambient scribe for clinic note documentation during this visit [facility] Medical History Epigastric abdominal pain Diabetes mellitus type 2, controlled, without complications Neck pain Hx of pancreatitis Type 2 diabetes mellitus with hyperglycemia Essential hypertension Hyperlipidemia LDL goal <100 Surgical History Hx of colonoscopy Family History Father Unknown family medical history Mother Diabetes Social History Household Members: None Housing: Apartment Patient Tobacco Use Status: Never used Tobacco Tobacco use type: Cigarette e-Cigarette/Vaping Use: Never Used Second Hand Smoke Exposure: No service: No Current occupational status: employed 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, 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 Cognitive needs: No Hearing needs: No Vision needs: No Review of Systems Const All systems reviewed & are unremarkable except as noted in HPI and below Physical Exam Vital Signs: Last Vital Signs Temp 98.3 F 10/29/24 13:53 Pulse 71 10/29/24 13:53 BP 140/72 H 10/29/24 13:53 Pulse Ox 98 10/29/24 13:53 Oxygen Delivery Method Room Air 10/29/24 13:53 BMI result Body Mass Index 26.8 Assessment & Plan Assessment & Plan (1) Upper respiratory tract infection: Code(s): J06.9 - Acute upper respiratory infection, unspecified Qualifiers: URI type: unspecified viral URI Qualified Code(s): J06.9 - Acute upper respiratory infection, unspecified Plan Most likely URI vs viral illness vs covid vs RSV vs flu plan - Symptomatic treatment with Tylenol, Motrin, or Aleve for body aches and fever. - Benzonatate prescribed for cough and sore throat relief. - Advised to maintain hydration with fluids such as tea, honey, Gatorade, and water. - COVID-19 and respiratory panel tests ordered, results to be communicated upon availability. - follow up with PCP Orders: Orders Resp Pathogen Panel - [facility] [place] Today J06.9 - Acute upper respiratory infection, u nspecified Medications: New benzonatate 100 mg PO bid-tid PRN 21 caps 0RF Cough 7 days Coding Level of Care Code Est Pt Level 3 (02484) Diagnoses Viral upper respiratory tract infection J06.9 URI type: unspecified viral URI
== END 2024-10-29 15:07 | disposition home or self-care (01) ==
PROVIDERS: Visit Provider Physician Assistant Medical
DX: J06.9 Acute upper respiratory infection, unspecified (principal)

== ENCOUNTER 2024-10-29 13:27 | Outpatient (REF) | payer OTHER, SELFPAY ==
--- OUTSIDE RECORDS SUMMARY | 2024-10-29 17:00 | XMS_ITS | Continuity of Care Document ---
Author Organization [facility] [address] [place] [address] Phone [phone] Problems Active Problems Provider Date Essential hypertension [...] SIG Qnty Indications Order ing Provider Date Dexcom G7 ReceiverDevice use for sugar reading dx e11.9 1units Laith Daly M.D. 11/23/2022 Dexcom G7 Sensor Change Every 10 Days Use To Check Sugar 3units E11.9 Laith Daly M.D. 11/23/2022 Onetouch VerioStrips use 1 strip to check glucose 3 times daily dx: e11.9 200units E11.9 Grover Fajardo M.D. 09/22/2022 [id number] Tablets Take 1 Tablet By Mouth Every Day 90tabs Laith Daly M.D. 08/24/2022 [id number] Tablets Take 1 Tablet By Mouth Twice A Day Carlos Urbano Metformin [id number] Tablets Take 1 Tablet By Mouth Twice A Day Carlos Urbano Freestyle Luis 2/Sensor/Flash Glucose Monitoring [id number] [facility] Carlos Urbano 000 Atorvastatin [id number] Tablets 1 by mouth every day 90tabs Carlos Urbano Amlodipine [id number] Tablets Take 1 Tablet By Mouth Once Daily Unknown Vital Signs Date Vital Result Comment 10/07/2024 9:25am BP Systolic 128 mmHg BP Diastolic 80 mmHg Heart Rate 72 /min Height 68 inches 5'8 Weight 177.00 lb BMI (Body Mass Index) 26.9 kg/m2 Results Test Acquired Date Facility Test Result H/L Range N ote Hemoglobin A1c 10/07/2024 Inhouse Hemoglobin A1c 6.4 Glucose Fingerstick 10/07/2024 Inhouse Glucose Fingerstick 135 Hemoglobin A1c 09/01/2023 Inhouse Hemoglobin A1c 6.7% [...] Date Location Provider Dx Diagnosis Office Visit 10/07/2024 9:15a Main Office Laith Daly M.D. E11.9 Type 2 diabetes mellitus without complications Assessments Date Code Description Provider 10/07/2024 E11.9 Type 2 diabetes mellitus without complications Laith Daly M.D. Plan of Treatment Future Appointment(s):* 03/06/2025 9:00 am - Laith Daly M.D. at Main Office 05/26/2023 - Laith Daly M.D.* E11.9 Type 2 diabetes mellitus without complications Functional Status Description No Information Available Mental Status Description No Information Available Referrals Refer to Reason for Referral Status Appt Laith Pascal M.D. Created [address] [place] [address] [address] [place] [address] [phone] Laith Daly M.D. Created [address] [place] [address] Drive [address] [place] [address] [phone] Ken Michelle MD DIABETES EYE EXAM Closed [address] [facility] [address] [place] [address] [phone] Laith Daly M.D. Closed [address] [place] [address] Drive [address] [place] [address] [phone]
[2024-10-30 09:38] LABS: Chlamydia pneumoniae PCR Not Detected (Not Detect.); Coronavirus 229E PCR Not Detected (Not Detect.); Coronavirus HKU1 PCR Not Detected (Not Detect.); Coronavirus NL63 PCR Not Detected (Not Detect.); Coronavirus OC43 PCR Not Detected (Not Detect.); RSV PCR Not Detected (Not Detect.); Rhino/Enterovirus PCR Not Detected (Not Detect.)
[2024-10-30 10:20] LABS: Influenza A H1 PCR Not Detected (Not Detect.); Influenza A H1-2009 PCR Not Detected (Not Detect.); Influenza A H3 PCR Not Detected (Not Detect.); SARS-CoV-2 PCR Detected (Not Detect.)
== END 2024-10-29 13:28 | disposition home or self-care (01) ==
LOC: HO.LNP 13:27
PROVIDERS: Visit Provider Physician Assistant Medical
DX: J06.9 Acute upper respiratory infection, unspecified (principal); J02.9 Acute pharyngitis, unspecified; B97.89 Other viral agents as the cause of diseases classified elsewhere; R05.9 Cough, unspecified; R50.9 Fever, unspecified; R11.10 Vomiting, unspecified; R52 Pain, unspecified; R09.89 Other specified symptoms and signs involving the circulatory and respiratory systems
CPT/HCPCS: 87633

== ENCOUNTER 2024-11-15 11:01 | Outpatient (AMB) | payer OTHER, SELFPAY ==
[2024-11-15 11:06] VITALS: BP 126/60; PULSE 70; RESP 18; TEMP 36.2; O2SAT 97; BMI 26.5
--- NOTE | 2024-11-15 11:06 | MHC.PC.OV ---
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 Accompanied by: Self / Same As Patient Allergies No Known Allergies Allergy (Verified 11/15/24 11:22) Medication List - Last Reconciled 11/15/24 by FRED Borges amlodipine 10 mg PO DAILY atorvastatin 20 mg PO DAILY blood-glucose sensor (Dexcom G7 Sensor device) As directed blood-glucose,pin sorter and bagger,cont (Dexcom G7 Rollway Worker) As directed clotrimazole-betamethasone 1-0.05 % 1 appl topical BID 2 weeks empagliflozin (Jardiance) 10 mg PO DAILY glipizide ER 2.5 mg PO DAILY lisinopril 40 mg PO BID metformin 500 mg PO BID 90 days Tobacco use date assessed: 11/15/24 Dental Screening Dental Screen Date: 11/15/24 Did you have a dental visit in the last 12 months?: No Did you have a dental problem in the last 6 months where you did not have access to dental care?: No Was dental information given to patient?: No HPI annual exam HPI Details Dentist:Reports that he has not dawn in two years Eye: up to date Snellen: Right: Left: Corrected vision:yes, reading glasses STI screening: Colonoscopy: Reports that he had this done about 4 years ago at [facility]-this is noted in the patient's file. The patient reports that he is not sure, but he remembers having this in his 50s Pap Smer: n/a PHQ-9: Flu:reports that he stopped getting this COVID: x2 Tdap:given in office today Diet:regular Exercise:Reports that he does not workout, but has been going to PT The patient is a 64-year-old male presenting with concerns of postnasal drip and coughing, as well as for routine health maintenance. The patient reports experiencing postnasal drip and persistent coughing, particularly after eating and at night, which he attributes to possible allergies. He describes the cough as being triggered by phlegm in the throat, leading to frequent throat clearing and coughing fits. He has a history of allergic rhinitis, experiencing symptoms such as nasal congestion, runny nose, and sneezing, which he manages with zpix-yet-zhwazic antihistamines like Claritin or Zyrtec. The patient finds that these medications help alleviate his symptoms, although he sometimes requires nasal sprays for congestion. The patient has a history of hyperlipidemia, with recent lab results showing a decrease in LDL cholesterol from 95 mg/dL to 63 mg/dL. His A1c is reported to be 6.1, indicating well-controlled diabetes mellitus. He had a colonoscopy approximately 10 years ago, with no significant findings reported at that time. The patient received a flu vaccination in the past, although the exact timing is not specified. He reports a recent COVID-19 infection following a trip to [place], which has since resolved. [facility] Medical History Epigastric abdominal pain Diabetes mellitus type 2, controlled, without complications Neck pain Hx of pancreatitis Type 2 diabetes mellitus with hyperglycemia Essential hypertension Hyperlipidemia LDL goal <100 Surgical History Hx of colonoscopy Family History Father Unknown family medical history Mother Diabetes Social History Household Members: None Housing: Apartment Patient Tobacco Use Status: Never used Tobacco Tobacco use type: Cigarette e-Cigarette/Vaping Use: Never Used Second Hand Smoke Exposure: No service: No Current occupational status: employed 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: No Do you have trouble paying your heating and electricity bill?: No Do you have trouble taking care of your child, family member or friend?: No Do you have trouble with day-to-day activities such as bathing, preparing meals, shopping, managing finances, etc.?: No Are you currently unemployed and looking for a job?: No Are you interested in more education?: No Please select the resources that you would like help with: None Currently or been in a relationship where the following occur: No concerns reported THRIVE Score: 0 AUDIT C Alcohol Use Questionnaire (AUDIT-C) 1. How often do you have a drink containing alcohol?: Never Total Score: 0 CEDRIC-7 AMB Questionnaire CEDRIC-7 Date CEDRIC - 7 assessed: 04/05/24 Feeling nervous, anxious, or on edge: 0 = Not at all Not being able to stop or control worryin = Not at all Worrying too much about different things: 0 = Not at all Trouble relaxin = Not at all Being so restless that it is hard to sit still: 0 = Not at all Becoming easily annoyed or irritable: 0 = Not at all Feeling afraid as if something awful might happen: 0 = Not at all Total CEDRIC-7 score (0-4 normal; 5-9 mild; 10-14 moderate; 15-21 severe): 0 Source: Developed by Drs. Jorge Ureña, Mable Conti, Alvaro Domínguez and colleagues, with an educational evens from [employer]. Review of Systems Const Denies headache(s) Eyes Denies loss of vision ENT Denies vertigo, Denies dizziness, Denies headache(s), Reports nasal congestion, Reports nasal discharge and Denies sore throat Card Denies chest pain, Denies leg edema and Denies lightheadedness Resp Reports cough, Denies hemoptysis and Denies wheezing GI Denies abdominal pain, Denies melena, Denies constipation, Denies diarrhea and Denies vomiting Denies dysuria, Denies urinary frequency and Denies urinary urgency Musc Reports back pain (chronic), Denies arthralgias, Denies joint swelling, Reports numbness (feet) and Reports tingling (feet) Neuro Denies Abnormal speech present, Denies behavioral changes, Denies vertigo, Denies dizziness, Denies headache(s), Denies loss of vision, Denies memory loss, Reports numbness (feet) and Reports tingling (feet) Psych Denies anxiety, Denies behavioral changes, Denies depression, Denies memory loss and Denies panic attacks Wilver/Lymph Denies easy bleeding and Denies easy bruising Aller/Immun Denies wheezing Physical exam (Primary Care) Vital Signs: Last Vital Signs Temp 97.1 F 11/15/24 11:06 Pulse 70 11/15/24 11:06 Resp 18 11/15/24 11:06 BP 126/60 11/15/24 11:06 Pulse Ox 97 11/15/24 11:06 Oxygen Delivery Method Room Air 11/15/24 11:06 BMI result Body Mass Index 26.5 Tobacco/Smoking Status: Tobacco use Status Tobacco use date assessed 11/15/24 11/15/24 11:08 Patient Tobacco Use Status Never used Tobacco 11/15/24 11:08 Tobacco use type Cigarette 11/15/24 11:08 e-Cigarette/Vaping Use Never Used 11/15/24 11:08 Thrive Assessment: Date of Thrive Assessment Date Thrive assessed 08/09/24 11/15/24 11:08 Currently or been in a relationship where the following occur: No concerns reported Const General: healthy appearing, no acute distress, alert and awake Nutritional Appearance: well nourished Orientation/consciousness: oriented to person, oriented to place and oriented to time HENMT Ears: TM's normal bilaterally General nose exam: Abnormal mucous membranes and turbinates present erythematous bilateral Eyes Conjunctivae: conjunctivae normal Sclerae: sclerae normal Pupils: Equal, round and reactive pupils present Neck Neck: Yes no lymphadenopathy and Yes no JVD Thyroid: Thyroid normal Carotids: no bruits Resp Effort & Inspection: normal respiratory effort and not tachypneic Auscultation: no crackles, no rales, no rhonchi and no wheezes Cardio Rate: regular rate Rhythm: regular rhythm Heart sounds: no murmurs and normal S1 and S2 GI Palpation (GI): Soft to palpation, nontender, no hepatomegaly and no splenomegaly Auscultation: normal bowel sounds General: Yes no CVA tenderness Back/Spine/Pelvis Back: no CVA tenderness Thoracic/Lumbar Spine: No lumbar spinal tenderness Skin General skin exam: no rashes or lesions noted and dry skin Neuro General: oriented to person, oriented to place and oriented to time Cranial nerves: Yes CN's II-XII intact bilaterally and Yes Equal, round and reactive pupils present Speech: No Abnormal speech present Gait exam (Neuro): Normal gait present Motor exam (neuro): no tremor noted Deep tendon reflexes (DTR's): Right triceps reflex intensity grade: 2+, Left triceps reflex intensity grade: 2+, Rt Biceps (C5, C6): 2+, Left biceps reflex intensity grade: 2+, Right brachioradialis reflex intensity grade: 2+, Left brachioradialis reflex intensity grade: 2+, Right patellar reflex intensity grade: 2+ and Left patellar reflex intensity grade: 2+ Extrem Right upper extremity: full ROM Left upper extremity: full ROM Right lower extremity: full ROM; no edema Left lower extremity: full ROM; no edema Psych Mental Status: mental status grossly normal Speech and movement: Normal speech and movement present Affect: normal affect Attitude: cooperative Thought process: Normal thought process present Immunizations Tenivac (PF) 5 Lf unit-2 Lf unit/0.5 mL intramuscular syringe Performing Provider: FRED Borges [facility] Administered by: SABRINA Garza on 11/15/24 11:37 Dose Route Admin Location Dispensed Lot Number Expiration Date 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 0.5 mL IM Right Deltoid 0.5 mL [id number] 05/28/26 [id number] [employer] Total Dispensed Waste 0.5 mL 0 % VIS Given Date VIS Provided VIS Publication Date 11/15/24 Single Vaccine 20 Eligibility Eligibility Date Funding Source Not [facility] Eligible 11/15/24 Private Results Reviewed Results Reviewed: Laboratory Tests 08/09/24 09/15/24 11:17 15:54 WBC 6.1 RBC 5.25 Hgb 16.7 Hct 48.3 MCV 92.0 MCH 31.8 MCHC 34.6 RDW 12.6 Plt Count 156 L MPV 11.2 Immature Gran % (Auto) 0.3 Neut % (Auto) 57.4 Lymph % (Auto) 31.2 Sodium 143 Potassium 3.9 Chloride 107 Carbon Dioxide 23 Anion Gap 17 BUN 18 H Creatinine 1.02 Estim Creat Clear Calc 85.9 Estimated GFR > 60 Random Glucose 148 H Hgb A1c (Clinic) 6.1 H Calcium 9.5 Troponin I High Sens 9.8 Coding Level of Care Code Est Pt Prev Care 40-64y(40290) Diagnoses Physical exam Z00.00 Chronic bilateral low back pain without sciatica M54.50; G89.29 Back pain laterality: bilateral Back pain location: low back pain Sciatica presence: without sciatica Diabetes mellitus type 2, controlled, without complications E11.9 Essential hypertension I10 Hyperlipidemia LDL goal <100 E78.5 Diabetic polyneuropathy associated with type 2 diabetes mellitus E11.42 Diabetes mellitus complication detail: diabetic polyneuropathy Diabetes mellitus type: type 2 Allergic rhinitis, unspecified seasonality, unspecified trigger J30.9 Allergic rhinitis seasonality: unspecified Allergic rhinitis trigger: unspecified Time Spent (min) 39 Assessment & Plan Assessment & Plan (1) Physical exam: Code(s): Z00.00 - Encounter for general adult medical examination without abnormal findings Category: Medical Plan: Preventative guidelines on labs from 2 months ago reviewed with the patient. Patient reports colonoscopy about 4 or 10 years ago. A new GI referral will be placed. The patient is overdue for an eye examination, with the last exam conducted over a year ago. Scheduling a follow-up eye exam is recommended to ensure ocular health. (2) Chronic back pain: Code(s): M54.9 - Dorsalgia, unspecified; G89.29 - Other chronic pain Category: Medical Qualifiers: Back pain laterality: bilateral Back pain location: low back pain Sciatica presence: without sciatica Qualified Code(s): M54.50 - Low back pain, unspecified; G89.29 - Other chronic pain Plan: Managed with stretching and posture modification May use warm compress alternating with cold compress Condition has been doing PT and reports that he is feeling much better (3) Diabetes mellitus type 2, controlled, without complications: Code(s): E11.9 - Type 2 diabetes mellitus without complications Category: Medical Plan: A1c 6.1%-goal less than 7% Reinforced low sugar/carbohydrate diet and activity as tolerated Continue Jardiance 10 mg daily, glipizide ER 2.5 mg daily, metformin 500 mg b.i.d. (4) Essential hypertension: Code(s): I10 - Essential (primary) hypertension Category: Medical Plan: Blood pressure running goal in office today Reinforced low-salt diet and activity as tolerated Continue amlodipine 10 mg daily, lisinopril 40 mg b.i.d. (5) Hyperlipidemia LDL goal <100: Code(s): E78.5 - Hyperlipidemia, unspecified Category: Medical Plan: The patient has not done as follow up labs as yet Reinforced low-cholesterol diet and activity as tolerated Continue atorvastatin 20 mg daily (6) Diabetic neuropathy: Code(s): E11.40 - Type 2 diabetes mellitus with diabetic neuropathy, unspecified Category: Medical Qualifiers: Diabetes mellitus complication detail: diabetic polyneuropathy Diabetes mellitus type: type 2 Qualified Code(s): E11.42 - Type 2 diabetes mellitus with diabetic polyneuropathy Plan: Reports that this is intermittent Continue to monitor (7) Allergic rhinitis: Code(s): J30.9 - Allergic rhinitis, unspecified Category: Medical Qualifiers: Allergic rhinitis seasonality: unspecified Allergic rhinitis trigger: unspecified Qualified Code(s): J30.9 - Allergic rhinitis, unspecified Plan: Limit exposure to allergens Air purifiers and dust filters Air conditioner in house, especially where sleeping The patient is advised to continue using vfsb-htd-grjlmwp antihistamines such as Claritin or Zyrtec to manage symptoms of allergic rhinitis. Nasal sprays may be used as needed for congestion relief. Orders: Orders AMB Hemoglobin A1c 11/15/24 Z13.9 - Encounter for screening, unspecified Td Immunization 11/15/24 Z23 - Encounter for immunization Microalbumin, Random (w Creat) 11/15/24 E11.65 - Type 2 diabetes mellitus with hyperglycemia, E78.5 - Hyperlipidemia, unspecified, I10 - Essential (primary) hypertension Referrals Gastroenterology Referral Z12.11 - Encounter for screening for malignant neoplasm of colon
--- OUTSIDE RECORDS SUMMARY | 2024-11-15 11:40 | XMS_ITS | Continuity of Care Document ---
Author Organization [facility] [address] [facility] [address] [place] [address] Phone [phone] Problems Active Problems Provider Date Essential hypertension [...] e11.9 200units E11.9 Grover Fajardo M.D. 09/22/2022 [id number] Tablets Take 1 Tablet By Mouth Every Day 90tabs Laith Daly M.D. 08/24/2022 Nvpbzcvnah10ez Tablets Take 1 Tablet By Mouth Twice A Day Carlos Urbano Metformin QQI0262ar Tablets Take 1 Tablet By Mouth Twice A Day Carlos Urbano Freestyle Luis 2/Sensor/Flash Glucose Monitoring [id number] [facility] Carlos Urbano 000 Atorvastatin Jjzqvkf91qa Tablets 1 by mouth every day 90tabs Carlos Urbano Amlodipine Zruydupx03oh Tablets Take 1 Tablet By Mouth Once [...] Referral Status Appt Laith Pascal M.D. Created [address] [place] [address] [address] [place] [address] [phone] Laith Daly M.D. Created [address] [place] [address] Drive [address] [place] [phone] Ken Michelle MD DIABETES EYE EXAM Closed [address] [facility] [address] [place] [address] [phone] Laith Daly M.D. Closed [address] [place] [address] Drive [address] [place] [address] [phone]
== END 2024-11-15 11:48 | disposition home or self-care (01) ==
LOC: HO.HMCH 11:02
DX: Z23 Encounter for immunization (principal)

== ENCOUNTER → 2024-11-15 11:01 | Outpatient (BNVA) | payer OTHER, SELFPAY | DX: Z00.00 Encounter for general adult medical examination without abnormal findings (principal); E11.42 Type 2 diabetes mellitus with diabetic polyneuropathy; E11.65 Type 2 diabetes mellitus with hyperglycemia; R09.82 Postnasal drip; J30.9 Allergic rhinitis, unspecified; E78.5 Hyperlipidemia, unspecified; M54.50 Low back pain, unspecified; G89.29 Other chronic pain; I10 Essential (primary) hypertension; Z23 Encounter for immunization | CPT/HCPCS: 90471; 90714 ==

== ENCOUNTER 2024-12-25 14:57 | Outpatient (AMB) | payer OTHER, SELFPAY ==
--- NOTE | 2024-12-25 15:06 | MHC.PC.OV ---
Vital Signs 12/25/24 15:07 Height 5 ft 8 in Weight 176 lb 8 oz BMI 26.8 BP 138/62 Blood Pressure Location Rt brachial Position Sitting Pulse 68 Pulse Source Pulse Oximeter Temp 97.1 F Temp Source Temporal Artery Scan Pulse Oximetry (%) 98 Oxygen Delivery Method Room Air Intake Visit Reasons: not feeling better Intake Note: Patient complains of not feeling well due to irregular sugar levels with shakes, agitation and easily annoyed Reel Slitter Required: No Foreign Exchange Position Clerk: Not Required per policy Accompanied by: Self / Same As Patient Allergies No Known Allergies Allergy (Verified 12/25/24 15:07) Tobacco use date assessed: 12/25/24 Dental Screening Dental Screen Date: 11/15/24 [facility] Medical History Epigastric abdominal pain Diabetes mellitus type 2, controlled, without complications Neck pain Hx of pancreatitis Type 2 diabetes mellitus with hyperglycemia Essential hypertension Hyperlipidemia LDL goal <100 Surgical History Hx of colonoscopy Family History Father Unknown family medical history Mother Diabetes Social History (Updated 12/25/24 @ 15:13 by SABRINA Wright) Household Members: None Housing: Apartment Alcohol intake: never Patient Tobacco Use Status: Never used Tobacco Tobacco use type: Cigarette e-Cigarette/Vaping Use: Never Used Second Hand Smoke Exposure: No service: No Current occupational status: employed 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: No Do you have trouble paying your heating and electricity bill?: No Do you have trouble taking care of your child, family member or friend?: No Do you have trouble with day-to-day activities such as bathing, preparing meals, shopping, managing finances, etc.?: No Are you currently unemployed and looking for a job?: No Are you interested in more education?: No Please select the resources that you would like help with: None Currently or been in a relationship where the following occur: No concerns reported THRIVE Score: 0 CEDRIC-7 AMB Questionnaire CEDRIC-7 Date CEDRIC - 7 assessed: 04/05/24 Source: Developed by Drs. Jorge Ureña, Mable Conti, Alvaro Domínguez and colleagues, with an educational evens from [employer]. Physical exam (Primary Care) Tobacco/Smoking Status: Tobacco use Status Tobacco use date assessed 11/15/24 11/15/24 11:08 Patient Tobacco Use Status Never used Tobacco 11/15/24 11:08 Tobacco use type Cigarette 11/15/24 11:08 e-Cigarette/Vaping Use Never Used 11/15/24 11:08 Thrive Assessment: Date of Thrive Assessment Date Thrive assessed 08/09/24 11/15/24 11:08 Currently or been in a relationship where the following occur: No concerns reported Results AMB Hemoglobin A1c AMB Hemoglobin A1c 6.2 % Last Edit by SABRINA Wright on 12/25/24 15:18 Coding Assessment & Plan Assessment & Plan Orders: Orders AMB Hemoglobin A1c Today E11.65 - Type 2 diabetes mellitus with hyperglycemia, E11.9 - Type 2 diabetes mellitus without complications
[2024-12-25 15:07] VITALS: BP 138/62; PULSE 68; TEMP 36.2; O2SAT 98; BMI 26.8
--- OUTSIDE RECORDS SUMMARY | 2024-12-25 19:27 | XMS_ITS | Continuity of Care Document ---
Author Organization [facility] [address] [place] [address] Phone [phone] Problems Active Problems Provider Date Essential hypertension [...] e11.9 200units E11.9 Grover Fajardo M.D. 09/22/2022 Ozeiopgff18cz Tablets Take 1 Tablet By Mouth Every Day 90tabs Laith Daly M.D. 08/24/2022 Ppksjqiyqp14gd Tablets Take 1 Tablet By Mouth Twice A Day Carlos Urbano Metformin [id number] Tablets Take 1 Tablet By Mouth Twice A Day Carlos Urbano Freestyle Luis 2/Sensor/Flash Glucose Monitoring Erhoxr1Qiuari [facility] Carlos Urbano 000 Atorvastatin Cevfaxq07qq Tablets 1 by mouth every day 90tabs Carlos Urbano Amlodipine Cemkzlfn89ps Tablets Take 1 Tablet By Mouth Once [...] Referral Status Appt Laith Pascal M.D. Created [address] [place] [address] [address] [place] [address] [phone] Laith Daly M.D. Created [address] [place] [address] Drive [address] [place] [id number] [phone] Ken Michelle MD DIABETES EYE EXAM Closed [address] [facility] [place] [address] [phone] Laith Daly M.D. Closed [address] [place] [address] Drive [address] [place] [address] [phone]
== END 2024-12-25 15:33 | disposition home or self-care (01) ==
LOC: HO.HMCH 14:58
PROVIDERS: Visit Provider Internal Medicine
DX: E11.65 Type 2 diabetes mellitus with hyperglycemia (principal); E11.9 Type 2 diabetes mellitus without complications

== ENCOUNTER → 2024-12-25 14:57 | Outpatient (BNVA) | payer OTHER, SELFPAY | PROVIDERS: Visit Provider Internal Medicine | DX: E11.65 Type 2 diabetes mellitus with hyperglycemia (principal); R53.83 Other fatigue | CPT/HCPCS: 83036 ==

== ENCOUNTER 2024-12-26 08:41 | Outpatient (REF) | payer OTHER, SELFPAY ==
[2024-12-26 09:15] LABS: MANUAL DIFF FLAG NO
[2024-12-26 09:30] LABS: Hematocrit 48.5 % (42.0-52.0); Hemoglobin 16.0 g/dl (14.0-18.0); Imm Gran Abs Auto 0.02 X10*3/uL (0.00-0.03); Imm Gran Pct Auto 0.4 % (0.0-0.4); Lymphocytes Absolute Auto 1.7 X10*3/uL (1.2-4.9); Mean Corpuscular HGB Conc 33.0 g/dl (31.0-36.0); Mean Corpuscular Hemoglobin 31.4 pg (27.0-33.0); Mean Corpuscular Volume 95.1 fL (80.0-98.0); NRBC Abs Auto 0.000 X10*3/uL (0.0-0.012); NRBC Pct Auto 0.0 /100WBC (0.0-0.2); Platelet Count 172 X10*3/uL (160-400); Red Blood Count 5.10 X10*6/uL (4.60-5.80); White Blood Count 5.6 X10*3/uL (4.8-10.8)
--- OUTSIDE RECORDS SUMMARY | 2024-12-26 09:33 | XMS_ITS | Continuity of Care Document ---
Author Organization [facility] [address] [place] [address] Phone [phone] Problems Active Problems Provider Date Essential hypertension [...] e11.9 200units E11.9 Grover Fajardo M.D. 09/22/2022 Pkdnauviv68bs Tablets Take 1 Tablet By Mouth Every Day 90tabs Laith Daly M.D. 08/24/2022 Vjgkolzyfu12gi Tablets Take 1 Tablet By Mouth Twice A Day Carlos Urbano Metformin [id number] Tablets Take 1 Tablet By Mouth Twice A Day Carlos Urbano Freestyle Luis 2/Sensor/Flash Glucose Monitoring Zaenno3Ttzeyx [facility] Carlos Urbano 000 Atorvastatin Lvhbsiw78wx Tablets 1 by mouth every day 90tabs Carlos Urbano Amlodipine Yhnqrlsp36da Tablets Take 1 Tablet By Mouth Once [...] Referral Status Appt Laith Pascal M.D. Created [address] [place] [address] [address] [place] [address] [phone] Laith Daly M.D. Created [address] [place] [address] Drive [address] [place] [phone] [phone] Ken Michelle MD DIABETES EYE EXAM Closed [address] [facility] [address] [place] [address] [phone] Laith Daly M.D. Closed [address] [place] [address] Drive [address] [place] [address] [phone]
[2024-12-26 10:16] LABS: Alanine Aminotransferase 24 U/L (0-40); Albumin Level 4.4 g/dL (3.5-5.0); Alkaline Phosphatase 66 U/L (39-117); Anion Gap 10 (12-20); Aspartate Amino Transferase 16 U/L (5-37); Blood Urea Nitrogen 19 mg/dL (9-16); Calcium 9.0 mg/dL (8.4-10.2); Carbon Dioxide 27 mmol/L (22-29); Chloride 111 mmol/L (96-108); Cholesterol 175 mg/dL (<200); Estimated Glomerular Filt Rate > 60; HDL Cholesterol 38 mg/dL (>40); Potassium 3.7 mmol/L (3.3-5.1); Sodium 144 mmol/L (135-145); Total Protein 7.2 g/dL (6.5-8.0); Triglycerides 97 mg/dL (<150)
[2024-12-26 11:29] LABS: Appearance Urine Clear; Glucose Urine UA >=1000 mg/dL (Negative); PH 6.0 (5.0-9.0); Specific Gravity - Urine 1.025 (1.005-1.025); UMIC TRIGGER UACC YES
[2024-12-26 11:55] LABS: Microalbum/Creatinine Ratio Ur 86.7 ug/mg cr (<30)
== END 2024-12-26 08:42 | disposition home or self-care (01) ==
LOC: HO.LAB 08:41
DX: I10 Essential (primary) hypertension (principal); E11.65 Type 2 diabetes mellitus with hyperglycemia; E78.5 Hyperlipidemia, unspecified; J06.9 Acute upper respiratory infection, unspecified; K52.9 Noninfective gastroenteritis and colitis, unspecified
CPT/HCPCS: 36415; 80053; 80061; 81001; 81003; 82043; 82306; 82570; 83036; 84443; 85025

== ENCOUNTER 2025-02-14 09:28 | Outpatient (AMB) | payer OTHER, SELFPAY ==
--- NOTE | 2025-02-14 09:32 | A.OFFPC_ITS ---
Vital Signs 02/14/25 09:33 Height 5 ft 8 in Weight 174 lb 6 oz BMI 26.5 BP 150/64 H Blood Pressure Location Lt brachial Position Sitting Respiration 18 Pulse 73 Pulse Source Pulse Oximeter Temp Source Temporal Artery Scan Pulse Oximetry (%) 97 Oxygen Delivery Method Room Air Intake Visit Reasons: htn/dm/hld Intake Note: Patient needs refill for Clotrimazole Topical Cream. Educational Interpreter Required: No Accompanied by: Self / Same As Patient Allergies No Known Allergies Allergy (Verified 02/14/25 09:53) Medication List - Last Reconciled 02/14/25 by FRED Borges amlodipine 10 mg PO DAILY atorvastatin 20 mg PO DAILY blood-glucose sensor ([employer] G7 Sensor device) As directed blood-glucose,enterprise applications manager,cont ([employer] G7 Culture Manager) As directed clotrimazole-betamethasone 1-0.05 % 1 appl topical BID 2 weeks empagliflozin (Jardiance) 10 mg PO DAILY glipizide ER 2.5 mg PO DAILY lisinopril 40 mg PO BID metformin 500 mg PO BID 90 days Tobacco use date assessed: 02/14/25 Dental Screening Dental Screen Date: 02/14/25 Did you have a dental visit in the last 12 months?: Yes Did you have a dental problem in the last 6 months where you did not have access to dental care?: No Was dental information given to patient?: Patient has dentist HPI HPI Comments History of Present Illness Details History of Present Illness The patient is a 64 year old male presenting for follow-up on management of diabetes and hypertension. Regarding his diabetes, his recent HbA1c is 6.3%, an improvement from a prior level in the 8s. He reports episodes of shakiness when his blood glucose is around 89 mg/dL, which causes him to feel unwell, agitated, and panicked. These episodes lead him to eat, sometimes causing his blood sugar to rise as high as 300 mg/dL. He has a history of poorly controlled blood pressure and reports significant stress, overthinking, and trouble sleeping, which he believes may contribute to it. He took his blood pressure medication today. The patient admits to drinking a lot of coffee without sugar and acknowledges he does not drink enough water. He tries to make healthy food choices, such as eating an apple with peanut butter instead of a donut, and understands the difference in metabolic effect between protein and starch. Health Maintenance - Advised to eat a balanced diet at regu lar intervals to maintain stable blood glucose levels. - Counseled on increasing water intake t o a minimum of six to eight bottles per day and reducing coffee consumption to improve hydration and blood pressure. - Recent HbA1c result of 6.3% indicates good glycemic control, placing him in the prediabetic range for a patient with diabetes. Social History - Substance Use: Reports drinking a lot of coffee but does not add sugar. - Diet: Acknowledges inadequate water in take. - Attempts to eat a balanced diet, incor porating protein and starch, and choosing healthy snacks like apples with peanut butter over donuts. - Psychosocial: Reports experiencing str ess and overthinking, which affects his sleep. Results - Labs: HbA1c is 6.3%. [facility] Medical History Epigastric abdominal pain Diabetes mellitus type 2, controlled, without complications Neck pain Hx of pancreatitis Type 2 diabetes mellitus with hyperglycemia Essential hypertension Hyperlipidemia LDL goal <100 Surgical History Hx of colonoscopy Family History Father Unknown family medical history Mother Diabetes Social History Household Members: None Housing: Apartment Alcohol intake: never Patient Tobacco Use Status: Never used Tobacco Tobacco use type: Cigarette e-Cigarette/Vaping Use: Never Used Second Hand Smoke Exposure: No service: No Current occupational status: employed 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: No Do you have trouble paying your heating and electricity bill?: No Do you have trouble taking care of your child, family member or friend?: No Do you have trouble with day-to-day activities such as bathing, preparing meals, shopping, managing finances, etc.?: No Are you currently unemployed and looking for a job?: No Are you interested in more education?: No Currently or been in a relationship where the following occur: No concerns reported THRIVE Score: 0 CEDRIC-7 AMB Questionnaire CEDRIC-7 Date CEDRIC - 7 assessed: 04/05/24 Source: Developed by Drs. Jorge Ureña, Mable Conti, Alvaro Domínguez and colleagues, with an educational evens from [employer] Review of Systems Narrative Review of Systems - General: Reports fatigue and shakiness, particularly with perceived hypoglycemia. - Reports feeling agitated and down during these episodes. - Denies headaches. - Cardiovascular: Denies chest pain, shortness of breath, and heart palpitations. - Neurological: Reports overthinking and difficulty sleeping. - Denies dizziness. - Gastrointestinal: Denies stomach pain. Const Denies headache(s) Eyes Denies loss of vision ENT Denies vertigo, Denies dizziness, Denies headache(s) and Denies sore throat Card Denies chest pain, Denies leg edema and Denies lightheadedness Resp Denies cough, Denies hemoptysis and Denies wheezing GI Denies abdominal pain, Denies melena, Denies constipation, Denies diarrhea and Denies vomiting Denies dysuria, Denies urinary frequency and Denies urinary urgency Musc Reports back pain (chronic), Denies arthralgias, Denies joint swelling, Reports numbness (feet) and Reports tingling (feet) Neuro Denies Abnormal speech present, Denies behavioral changes, Denies vertigo, Denies dizziness, Denies headache(s), Denies loss of vision, Denies memory loss, Reports numbness (feet) and Reports tingling (feet) Psych Denies anxiety, Denies behavioral changes, Denies depression, Denies memory loss and Denies panic attacks Wilver/Lymph Denies easy bleeding and Denies easy bruising Aller/Immun Denies wheezing Physical exam (Primary Care) Vital Signs: Last Vital Signs Pulse 73 02/14/25 09:33 Resp 18 02/14/25 09:33 BP 150/64 H 02/14/25 09:33 Pulse Ox 97 02/14/25 09:33 Oxygen Delivery Method Room Air 02/14/25 09:33 BMI result Body Mass Index 26.5 Tobacco/Smoking Status: Tobacco use Status Tobacco use date assessed 02/14/25 02/14/25 09:41 Patient Tobacco Use Status Never used Tobacco 02/14/25 09:33 Tobacco use type Cigarette 02/14/25 09:33 e-Cigarette/Vaping Use Never Used 02/14/25 09:33 Thrive Assessment: Date of Thrive Assessment Date Thrive assessed 02/14/25 02/14/25 09:41 Currently or been in a relationship where the following occur: No concerns reported Narrative Physical Exam - Vitals: Blood pressure was noted to be elevated and was rechecked during the visit. - Respiratory: Lungs clear to auscultation. Const General: healthy appearing, no acute distress, alert and awake Nutritional Appearance: well nourished Orientation/consciousness: oriented to person, oriented to place and oriented to time HENMT Ears: TM's normal bilaterally General nose exam: Normal nasal mucous membranes and turbinates present Eyes Conjunctivae: conjunctivae normal Sclerae: sclerae normal Pupils: Equal, round and reactive pupils present Neck Neck: Yes no lymphadenopathy and Yes no JVD Thyroid: Thyroid normal Carotids: no bruits Resp Effort & Inspection: normal respiratory effort and not tachypneic Auscultation: no crackles, no rales, no rhonchi and no wheezes Cardio Rate: regular rate Rhythm: regular rhythm Heart sounds: no murmurs and normal S1 and S2 GI Palpation (GI): Soft to palpation, nontender, no hepatomegaly and no splenomegaly Auscultation: normal bowel sounds General: Yes no CVA tenderness Back/Spine/Pelvis Back: no CVA tenderness Thoracic/Lumbar Spine: No lumbar spinal tenderness Skin General skin exam: no rashes or lesions noted and dry skin Neuro General: oriented to person, oriented to place and oriented to time Cranial nerves: Yes CN's II-XII intact bilaterally and Yes Equal, round and reactive pupils present Speech: No Abnormal speech present Gait exam (Neuro): Normal gait present Motor exam (neuro): no tremor noted Extrem Right upper extremity: full ROM Left upper extremity: full ROM Right lower extremity: full ROM; no edema Left lower extremity: full ROM; no edema Psych Mental Status: mental status grossly normal Speech and movement: Normal speech and movement present Affect: normal affect Attitude: cooperative Thought process: Normal thought process present Results Reviewed Results Reviewed: Laboratory Tests 12/26/24 12/26/24 09:13 09:15 WBC 5.6 RBC 5.10 Hgb 16.0 Hct 48.5 MCV 95.1 MCH 31.4 MCHC 33.0 RDW 12.6 Plt Count 172 Sodium 144 Potassium 3.7 Chloride 111 H Carbon Dioxide 27 Anion Gap 10 L BUN 19 H Creatinine 0.97 Estimated GFR > 60 Fasting Glucose 135 H Estimat Average Glucose 134 Hemoglobin A1c % 6.3 H Calcium 9.0 Total Bilirubin 0.5 AST 16 ALT 24 Alkaline Phosphatase 66 Total Protein 7.2 Albumin 4.4 Triglycerides 97 Cholesterol 175 LDL Cholesterol, Calc 118 H HDL Cholesterol 38 L 25-OH Vitamin D Total 59.3 TSH 1.57 Urine Color Yellow Urine Appearance Clear Urine pH 6.0 Ur Specific [place] 1.025 Urine Protein Trace Urine Glucose (UA) >=1000 H Urine Ketones Negative Urine Blood Negative Urine Nitrite Negative Ur Leukocyte Esterase Negative Urine RBC 0-2 Urine WBC 0-5 Ur Squamous Epith Cells 0-2 Urine Bacteria None Seen Hyaline Casts 0-2 Urine Creatinine 64.59 Urine Microalbumin 56.0 Microalb/Creat Ratio 86.7 H Coding Level of Care Code Est Pt Level 4 (31745) Diagnoses Chronic bilateral low back pain without sciatica M54.50; G89.29 Back pain location: low back pain Back pain laterality: bilateral Sciatica presence: without sciatica Diabetes mellitus type 2, controlled, without complications E11.9 Essential hypertension I10 Hyperlipidemia LDL goal <100 E78.5 Diabetic polyneuropathy associated with type 2 diabetes mellitus E11.42 Diabetes mellitus type: type 2 Diabetes mellitus complication detail: diabetic polyneuropathy Allergic rhinitis, unspecified seasonality, unspecified trigger J30.9 Allergic rhinitis trigger: unspecified Allergic rhinitis seasonality: unspecified Time Spent (min) 38 Assessment & Plan Assessment & Plan (1) Chronic back pain: Code(s): M54.9 - Dorsalgia, unspecified; G89.29 - Other chronic pain Category: Medical Qualifiers: Back pain location: low back pain Back pain laterality: bilateral Sciatica presence: without sciatica Qualified Code(s): M54.50 - Low back pain, unspecified; G89.29 - Other chronic pain Plan: Managed with stretching and posture modification May use warm compress alternating with cold compress Condition has been doing PT and reports that he is feeling much better (2) Diabetes mellitus type 2, controlled, without complications: Code(s): E11.9 - Type 2 diabetes mellitus without complications Category: Medical Plan: The patient's glycemic control has improved, with a recent HbA1c of 6.3%. He experiences symptoms of hypoglycemia, such as shakiness, when his blood sugar is around 89 mg/dL; it was explained that this is his body adjusting from previously higher glucose levels. The patient was counseled on the importance of eating at regular intervals with balanced meals to prevent large fluctuations in blood glucose and avoid the cycle of hypoglycemia followed by reactive hyperglycemia Continue Jardiance 10 mg daily, glipizide ER 2.5 mg daily, metformin 500 mg b.i.d. We will rechecked fasting glucose and A1c in 3 months (3) Essential hypertension: Code(s): I10 - Essential (primary) hypertension Category: Medical Plan: Blood pressure 150/64 mm Hg-systolic goal was less than 130 mm Hg Reports drinking mostly coffee; reports poor fluids intake Reinforced low-salt diet and activity as tolerated Encouraged medication compliance Continue amlodipine 10 mg daily, lisinopril 40 mg b.i.d. Return in 4 weeks for blood pressure check from nurse (4) Hyperlipidemia LDL goal <100: Code(s): E78.5 - Hyperlipidemia, unspecified Category: Medical Plan: LDL 118 increased from 63, goal less than 70 mg/dL. Discussed with the patient about his ldl being lowering prior on same dose of atorvastatin, hence, he must of changed his diet for the worse. Reinforced low-cholesterol diet and activity as tolerated Continue atorvastatin 20 mg daily We will repeat lipid panel in 3 months (5) Diabetic neuropathy: Code(s): E11.40 - Type 2 diabetes mellitus with diabetic neuropathy, unspecified Category: Medical Qualifiers: Diabetes mellitus type: type 2 Diabetes mellitus complication detail: diabetic polyneuropathy Qualified Code(s): E11.42 - Type 2 diabetes mellitus with diabetic polyneuropathy Plan: Reports that this is intermittent Continue to monitor (6) Allergic rhinitis: Code(s): J30.9 - Allergic rhinitis, unspecified Category: Medical Qualifiers: Allergic rhinitis trigger: unspecified Allergic rhinitis seasonality: unspecified Qualified Code(s): J30.9 - Allergic rhinitis, unspecified Plan: Limit exposure to allergens Air purifiers and dust filters Air conditioner in house, especially where sleeping The patient is advised to continue using qzjz-pri-xjwxshj antihistamines such as Claritin or Zyrtec to manage symptoms of allergic rhinitis. Nasal sprays may be used as needed for congestion relief. Plan Plan Patient was informed and verbally consented to the use of an ambient scribe for clinic note documentation during this visit. 1. Diabetes Mellitus The patient's glycemic control has improved, with a recent HbA1c of 6.3%. He experiences symptoms of hypoglycemia, such as shakiness, when his blood sugar is around 89 mg/dL; it was explained that this is his body adjusting from previously higher glucose levels. The patient was counseled on the importance of eating at regular intervals with balanced meals to prevent large fluctuations in blood glucose and avoid the cycle of hypoglycemia followed by reactive hyperglycemia. 2. Hypertension The patient's blood pressure is elevated, potentially due to his high coffee consumption, low water intake, and stress. No medication changes will be made at this time. The plan is for the patient to increase water intake to 6-8 bottles daily, reduce coffee, and return for a blood pressure check in four weeks. He was instructed not to drink coffee before his next appointment to ensure an accurate reading. The long-term risks of uncontrolled hypertension, specifically on the kidneys, were discussed. Discussion Notes I reviewed the patient's recent HbA1c of 6.3%, noting it is a very good result. We discussed that his symptoms of shakiness when his blood sugar is around 89 mg/dL are due to his body adjusting to lower glucose levels and not a sign of dangerous hypoglycemia. I advised him to eat at regular intervals to avoid these fluctuations. Regarding his elevated blood pressure, I explained that dehydration from high coffee consumption is a likely contributing factor. We will defer adding new medications and instead focus on lifestyle changes. I instructed him to increase his water intake to 6-8 bottles daily and to return in four weeks for a blood pressure recheck, requesting that he avoid coffee before that visit. I also explained the importance of blood pressure control for long-term kidney health. Patient Instructions - Eat balanced meals at regular times throughout the day to keep your blood sugar stable. - Drink at least 6 to 8 bottles of water every day. - Try to cut back on the amount of coffee you drink. - You have a follow-up appointment in 4 weeks just to check your blood pressure. - Please do not drink any coffee on the day of your next appointment before we check your blood pressure. - Your next full check-up will be in 3 months. Orders: Orders Hemoglobin A1c 3 Months E11.65 - Type 2 diabetes mellitus with hyperglycemia, E78.5 - Hyperlipidemia, unspecified, I10 - Essential (primary) hypertension, J30.9 - Allergic rhinitis, unspecified Complete Blood Count Auto Diff 3 Months E11.65 - Type 2 diabetes mellitus with hyperglycemia, E78.5 - Hyperlipidemia, unspecified, I10 - Essential (primary) hypertension, J30.9 - Allergic rhinitis, unspecified Comprehensive [place]. Panel Fast 3 Months E11.65 - Type 2 diabetes mellitus with hyperglycemia, E78.5 - Hyperlipidemia, unspecified, I10 - Essential (primary) hypertension, J30.9 - Allergic rhinitis, unspecified Vitamin D 25-OH Total 3 Months E11.65 - Type 2 diabetes mellitus with hyperglycemia, E78.5 - Hyperlipidemia, unspecified, I10 - Essential (primary) hypertension, J30.9 - Allergic rhinitis, unspecified UA CC w/rflx Micro + Cult 3 Months E11.65 - Type 2 diabetes mellitus with hyperglycemia, E78.5 - Hyperlipidemia, unspecified, I10 - Essential (primary) hypertension, J30.9 - Allergic rhinitis, unspecified TSH reflex Free T4 3 Months E11.65 - Type 2 diabetes mellitus with hyperglycemia, E78.5 - Hyperlipidemia, unspecified, I10 - Essential (primary) hypertension, J30.9 - Allergic rhinitis, unspecified Lipid Panel 3 Months E11.65 - Type 2 diabetes mellitus with hyperglycemia, E78.5 - Hyperlipidemia, unspecified, I10 - Essential (primary) hypertension, J30.9 - Allergic rhinitis, unspecified
[2025-02-14 09:33] VITALS: BP 150/64; PULSE 73; RESP 18; O2SAT 97; BMI 26.5
== END 2025-02-14 10:18 | disposition home or self-care (01) ==
LOC: HO.HMCH 09:29
DX: M54.50 Low back pain, unspecified (principal); G89.29 Other chronic pain; E11.42 Type 2 diabetes mellitus with diabetic polyneuropathy; I10 Essential (primary) hypertension; E78.5 Hyperlipidemia, unspecified; J30.9 Allergic rhinitis, unspecified